=== PATIENT | female | born 1955 | race Caucasian/White ===

== ENCOUNTER → 2018-01-20 16:01 | Outpatient (CLI) | payer BC, SELFPAY ==
[2018-01-20 17:51] LABS: CRP 3.46 mg/L (0.0-3.0)
[2018-01-22 15:00] LABS: Endomysial Antibody IgA Negative (Negative); Immunoglobulin A 172 mg/dL (87-352); t-Transglutaminase IgA <2 U/mL (0-3)
== END ==
PROVIDERS: Family Provider Family Medicine; PCP Family Medicine; Visit Provider Internal Medicine Gastroenterology
DX: R19.7 Diarrhea, unspecified (principal)
CPT/HCPCS: 36415; 82784; 83516; 86140; 86255

== ENCOUNTER → 2018-01-27 16:30 | Outpatient (CLI) | payer BC, SELFPAY ==
--- NOTE | 2018-01-27 13:10 | COLBX_PTH ---
PATIENT: ARIEL VEE LOC: [facility] U#:[id number] AGE/SX: 69/F ROOM: RE01/27/[address]: Dr. Kendall Smith MD : [id number] BED: DIS: SPEC #: [id number] RECD: 01/27/18 15:29 STATUS: HILARIO DIRK #: [id number] KENYA: 01/27/18 13:[address]: Kendall Smith DEPT: SURGICAL PATHOLOGY RECD BY: Brayan Quinn ENTERED: 01/28/18 10:48 SP TYPE: COLON BX OTHR DR: Dr. Clifton Barry MD [facility] Tissues: A - Ileum, NOS B - COLON BIOPSY Procedures: Surgery Specimen Level IV HEADER OPERATION: Colonoscopy with biopsies PRE-OP DIAGNOSIS: Diarrhea TISSUE SUBMITTED: A. Biopsies terminal ileum, rule out Crohn?s, B. Biopsies right and left colon, rule out microscopic colitis MICROSCOPIC DIAGNOSIS A. Terminal ileum, biopsy: Fragments of small intestinal mucosa, no pathologic diagnosis. B: Right and left colon, biopsy: Fragments of colonic mucosa, no pathologic diagnosis. SJ:mike 01/29/18 TC:4 MICROSCOPIC DESCRIPTION Slides are reviewed. GROSS DESCRIPTION A. Received in fixative is one container labeled with the patient's name and designated terminal ileum biopsies. The specimen consists of multiple fragments of tissue measuring in aggregate 1.6 x 0.5 x 0.2. The specimen is totally submitted in one cassette. B. Received in fixative is one container labeled with the patient's name and designated right and left colon biopsy. The specimen consists of multiple fragments of tissue measuring in aggregate 1.8 x 0.5 x 0.2. The specimen is totally submitted in one cassette. RY:mike 01/27/18 TC: 4 CPT:67717x3
== END ==
PROVIDERS: Family Provider Family Medicine; PCP Family Medicine; Visit Provider Internal Medicine Gastroenterology
DX: R19.7 Diarrhea, unspecified (principal)
CPT/HCPCS: 88305

== ENCOUNTER → 2020-07-19 13:03 | Outpatient (CLI) | payer OTHER, SELFPAY ==
--- NOTE | 2020-07-19 13:05 | CT_ITS ---
STUDY: LOW DOSE CT LUNG CANCER SCREENING REASON FOR EXAM: Female, 64 years old. LUNG CANCER SCREENING. 1.5 PPD X 30 YEARS . QUIT IN 1999. HISTORY OF ANAL CA RADIATION DOSAGE (If Supplied By Facility): CTDIvol = ( 3.40 ) mGy, DLP = ( 105.94 ) mGycm TECHNIQUE: No contrast was administered. Low dose technique was utilized (average mAS-38 and kVp 120). 1.25 mm axial source images with a slice interval of 1.25-mm were reconstructed in lung windows. 2.5 mm axial source images with a slice interval of 2.5-mm were reconstructed in lung windows. 5.0 mm axial source images with a slice interval of 5.0-mm were reconstructed in soft tissue windows. Nodule measured using lung windows on PACS and/or independent workstation with automated measurement of minimum and maximum diameter. Nodule measurement reported as average diameter rounded to the nearest whole number. Growth is defined as an increase ins size of greater than 1.5 mm. COMPARISON: None. NODULES: No suspicious nodules are seen. Emphysema: No significant emphysematous changes. Endobronchial lesion: Aorta: Atherosclerotic calcification of the aortic arch. Coronary arteries: Coronary artery calcification. Mediastinal nodes: Benign appearing mediastinal lymph nodes. Other chest and abdominal findings: Degenerative changes of the thoracic spine. CT/Low Dose CT Lung Screening IMPRESSION: Lung-RADS category 2 - Continue annual screening with LDCT in 12 months. IMPORTANT NOTES FOR USE: ACR Lung-RADS Version 1.0 Assessment Categories Release Date: November 30, 2013 Category: Coded 0-4 bases on nodule(s) with highest degree of suspicion. Negative screen is defined as categories 1 and 2; a positive screen is defined as categories 3 and 4. Category 3 and 4A nodules that are unchanged on interval CT should be coded as category 2, and individuals returned to screening in 12 months. Category 4X: Category 3 or 4 nodules with additional imaging findings that increase the suspicion of lung cancer, such as spiculation, GGN that doubles in size in 1 year, enlarged lymph notes, etc. Category Modifiers: S (significant finding unrelated to lung cancer) and C (prior history of treated lung cancer) may be added to the 0-4 Lung-RADS Electronically Signed: Abdoulaye Zacarias, at 15:33 EST , Service support ,
== END ==
PROVIDERS: PCP Family Medicine; Referring Provider Radiology Radiation Oncology; Visit Provider Radiology Radiation Oncology
DX: Z12.2 Encounter for screening for malignant neoplasm of respiratory organs (principal); Z87.891 Personal history of nicotine dependence
CPT/HCPCS: G0297

== ENCOUNTER 2022-04-15 20:35 | Emergency (ER) | payer MEDICARE, OTHER, SELFPAY ==
[2022-04-15 20:36] VITALS: BP 181/78; PULSE 79; RESP 18; TEMP 35.7; O2SAT 97; BMI 37.8
[2022-04-15 21:21] LABS: Bacteria 0 SEEN /hpf (None Seen); Mucous, Urine 0 SEEN /hpf (<or=2+)
[2022-04-15 21:25] LABS: Color, Urine Yellow (Yellow); Glucose, Dipstick Normal (Normal); Ketone-Dipstick 5 mg/dl (Negative); Leukocyte Esterase-Dipstick 500 /ul (Negative); Nitrite-Dipstick Negative (Negative); Occult Blood-Urine 250 /ul (Negative); Protein-Dipstick 30 mg/dl (Negative); Specific Gravity, Urine 1.025 (1.002-1.030); Urine Urobilinogen 1 mg/dl (Normal)
[2022-04-15 21:27] LABS: Urine Bilirubin Dipstick 1 mg/dL (Negative)
[2022-04-15 21:32] LABS: Red Blood Cells-Urine > 100 SEEN /hpf (0-5); White Blood Cells 25-50 SEEN /hpf (0-5)
[2022-04-15 21:33] LABS: Amorphous Sediment 1+ URATE; Squamous Epithelial Cells - UA 0-5 SEEN /hpf (5-10)
[2022-04-15 21:34] LABS: Urine Clarity Sl Cldy (Clear)
--- NOTE | 2022-04-15 21:45 | CT_ITS ---
STUDY: CT ABDOMEN AND PELVIS WITHOUT CONTRAST REASON FOR EXAM: Female, 66 years old. Kidney Stone RADIATION DOSAGE (If Supplied By Facility): CTDIvol = ( 28.52 ) mGy, DLP = ( 1450.09 ) mGycm TECHNIQUE: Transaxial images were obtained from the dome of the diaphragm to the symphysis pubis without oral contrast, and without intravenous contrast. Sagittal and coronal images were reconstructed. Individualized dose optimization techniques were used for this CT. COMPARISON: None. FINDINGS: LOWER CHEST: Mitral annular calcifications. LIVER: The liver is diffusely hypoattenuating, consistent with hepatic steatosis. GALLBLADDER/BILE DUCTS: Normal. PANCREAS: Normal. SPLEEN: Normal. ADRENAL GLANDS: Normal. KIDNEYS/URETERS/BLADDER: Mild left hydroureteronephrosis due to a 3 mm calculus at the left vesicoureteral junction. Additional nonobstructive left nephrolithiasis.. Cystic changes in the interpolar region of the left kidney measuring 19 mm, incompletely characterized. RETROPERITONEUM/AORTA: Moderate atherosclerotic calcifications. BOWEL/MESENTERY: Normal. APPENDIX: Identified and normal. PERITONEUM: Normal. REPRODUCTIVE ORGANS: Normal. BONES/SOFT TISSUES: Status post right hip arthroplasty with streak artifact, limiting evaluation. No acute osseous abnormality. OTHER: None. CT/Abdomen/Pelvis without Cont IMPRESSION: 1. Mild left hydroureteronephrosis due to a 3 mm calculus in the left vesicoureteral junction. 2. Additional nonobstructive left nephrolithiasis. 3. Incompletely evaluated 19 mm cystic structure in the left kidney. Consider further characterization with renal ultrasound. 4. Hepatic steatosis. Electronically Signed: Arie Montalvo MD at 22:35 EDT ,
--- NOTE | 2022-04-15 21:46 | EDS_ITS ---
HPI History of Present Illness Chief Complaint: Flank Pain Informant: patient Narrative Narrative: Increasing left flank pain rating to her groin since 5 PM. Nausea vomiting x3. No urinary symptoms. No history of kidney stones. Only medication is Lipitor. No allergies. No medicines taken at home. No history of kidney injuries. Pain currently is 6 out of 10. Prior similar symptoms: No PFSH PFSH Medical History Cancer Former smoker GERD (gastroesophageal reflux disease) Osteoporosis Primary malignant neoplasm of perianal skin Home Medications atorvastatin 40 mg tablet 40 mg PO QHS 04/15/22 [History Last Taken Unknown] cephalexin 500 mg capsule 500 mg PO Q12 #14 caps 04/15/22 [Rx Last Taken Unknown] multivit with ofaidvbk-tipl-OD-lutein 8 mg iron-400 mcg-300 mcg tablet (Centrum Silver Women) 1 tab PO DAILY 04/15/22 [History Last Taken Unknown] ondansetron 4 mg disintegrating tablet 4 mg PO Q6H PRN nausea and vomiting #20 tabs 04/15/22 [Rx Last Taken Unknown] oxycodone-acetaminophen 5 mg-325 mg tablet (Percocet) 1 tab PO Q6H PRN pain 3 days #12 tabs 04/15/22 [Rx Last Taken Unknown] Allergy/AdvReac Type Severity Reaction Status Date / Time No Known Allergies Allergy Verified 04/15/22 20:35 Social History Smoking Status: Former smoker ROS ROS ED Constitutional Constitutional ED: Denies chills, fever(s) or sweats Eyes Eyes: Denies change in vision ENT ENT ED: Denies dysphagia or sore throat Cardiovascular Cardiovascular: Denies chest pain, leg edema, palpitations or racing heartbeat Respiratory/Chest Respiratory/Chest: Denies cough, dyspnea or dyspnea on exertion Gastrointestinal Gastrointestinal: Denies abdominal pain, diarrhea, nausea or vomiting Genitourinary Genitourinary ED: Denies dysuria, hematuria or urinary frequency Musculoskeletal Musculoskeletal: Reports back pain; Denies extremity pain or neck pain Integumentary Denies rash or wounds Neurologic Neurologic: Denies headache(s), paresthesias or weakness EXAM Physical Exam Const Vital Signs: 04/15/22 20:36 04/15/22 23:36 04/15/22 23:36 Temperature 96.3 F L Temperature Source Temporal Pulse Rate 79 75 75 Respiratory Rate 18 16 16 Blood Pressure 181/78 H 154/70 H 154/70 H Blood Pressure Mean 112 98 Pulse Ox 97 97 97 Oxygen Delivery Method Room Air Room Air Positive well nourished and well developed General Appearance ED: well developed and NAD HEENT Reports moist mucous membranes normocephalic and atraumatic Eyes PERRL, EOMs intact bilaterally and conjunctivae normal General Eye ED: Yes normal appearance of both eyes Neck no lymphadenopathy and supple General: Negative for tenderness Chest Wall Chest: Negative for tenderness Resp normal respiratory effort and normal air movement Effort and Inspection: symmetric chest movement; Negative for respiratory distress Cardio regular rate, regular rhythm and no murmurs Peripheral Pulses: pulses 2+ throughout GI normal to inspection, nondistended, normoactive bowel sounds and non-tender Palpation: Negative for guarding or rebound tenderness present Back/Spine no CVA tenderness and no thoracic nor lumbar tenderness Extremity normal to inspection General Extremety ED: Negative for edema or tenderness General Extremity: Negative for edema Neuro oriented x3 and no sensory deficits noted Sensorium / Orientation: awake and alert Skin no rashes or lesions noted and no wounds MDM MDM MDM Narrative Medical decision making narrative: Presented renal colic since 5 PM no history of kidney stones urine from triage note signs of infection or blood however she denies urine symptoms. Treated with IV fluids Toradol Zofran. CT scan confirms 3 mm left UVJ stone with mild hydro-. White count 8.6 creatinine 1.2 there is no old for comparison. Her symptoms were controlled. With kidney stone signs of infection culture sent and she is given dose of Rocephin. I spoke with on-call urologist Dr. Shaffer with symptom control nontoxic can be discharged with outpatient follow-up. Patient sent home with urine strainer. Strict return precautions. Her prior to discharge pain returned requiring a dose of morphine which helped her symptoms. Will avoid NSAIDs with her renal sufficiency at 1.2 creatinine. Prescription for Zofran Percocet Keflex written for meds to beds. Follow-up given with strict return precautions. All questions were answered. Lab Data Attestation: I reviewed the patient's lab results. Labs: Laboratory Results - last 24 hr 09/11/22 09/11/22 09/11/22 21:15 21:15 21:15 WBC 8.6 RBC 4.38 Hgb 13.2 Hct 40.0 MCV 91.3 MCH 30.1 MCHC 33.0 RDW Std Deviation 41.8 RDW Coeff of Miguel 12.7 Plt Count 250 MPV 10.9 Immature Gran % (Auto) 0.600 Neut % (Auto) 53.9 Lymph % (Auto) 36.7 [place] % (Auto) 7.5 Eos % (Auto) 1.0 Baso % (Auto) 0.3 Absolute Neuts (auto) 4.6 Absolute Lymphs (auto) 3.17 Nucleated RBC % 0 Sodium 144 Potassium 3.8 Chloride 110 H Carbon Dioxide 27.0 Anion Gap 7 BUN 16 Creatinine 1.20 H Estim Creat Clear Calc 38.75 Est GFR (MDRD) Af Amer 57 L Est GFR (MDRD) Non-Af 47 L BUN/Creatinine Ratio 13.3 Glucose 102 Calcium 9.4 Urine Color Yellow Urine Clarity Sl Cldy Urine pH 5.0 Ur Specific [place] 1.025 Urine Protein 30 H Urine Glucose (UA) Normal Urine Ketones 5 H Urine Occult Blood 250 H Urine Nitrite Negative Urine Bilirubin 1 H Urine Urobilinogen 1 H Ur Leukocyte Esterase 500 H Urine RBC > 100 SEEN Urine WBC 25-50 SEEN Ur Squamous Epith Cells 0-5 SEEN Amorphous Sediment 1+ URATE Urine Bacteria 0 SEEN Urine Mucus 0 SEEN Radiography Diagnostic Testing: Clinical Impression(s) from Imaging Studies Abdomen/Pelvis CT 04/15/22 21:45 IMPRESSION: 1. Mild left hydroureteronephrosis due to a 3 mm calculus in the left vesicoureteral junction. 2. Additional nonobstructive left nephrolithiasis. 3. Incompletely evaluated 19 mm cystic structure in the left kidney. Consider further characterization with renal ultrasound. 4. Hepatic steatosis. Electronically Signed: Arie Montalvo MD at 22:35 EDT , Discharge Plan Triage Chief Complaint: Flank Pain ED Provider: Renato Reed Dx/Rx/DC Orders Clinical Impression: Kidney stone on left side, Hematuria, UTI (urinary tract infection), Renal insufficiency Instructions: ED Hematuria, ED Kidney Stone w/ Colic Prescriptions: New oxycodone-acetaminophen [Percocet] 5-325 mg tablet 1 tab PO Q6H PRN (Reason: pain) 3 Days Qty: 12 0RF cephalexin [cephalexin] 500 mg capsule 500 mg PO Q12 Qty: 14 0RF ondansetron 4 mg tablet,disintegrating 4 mg PO Q6H PRN (Reason: nausea and vomiting) Qty: 20 0RF No Action atorvastatin 40 mg tablet 40 mg PO QHS Centrum Silver Women 8 mg iron-400 mcg-300 mcg Tablet 1 tab PO DAILY Primary Care Provider: Clifton Barry Referrals: Clifton Barry MD [Primary Care Provider] - Alonso Shaffer MD [Med Staff - Active Staff] - 3-5 Days Activity Restrictions/Additional Instructions: 3 mm left UVJ stone. Urine with infection. Creatinine 1.2. Take antibiotic as prescribed. Take medicines as needed. Strain your urine. Return if any worsening symptoms. Disposition Disposition: Home, Self Care Discharge Date/Time: 04/16/22 00:12
[2022-04-15] MEDS: Ketorolac 15 MG/ML Vial IV (21:50)
[2022-04-15] MEDS: Ondansetron 4 MG/2 ML Vial IV (21:50)
[2022-04-15] MEDS: 0.9% Normal Saline 1,000 ML 250 ML IV (21:51)
[2022-04-15 22:08] LABS: Anion Gap 7 (5-15); BUN 16 mg/dL (7-18); BUN/Creat Ratio 13.3 RATIO (10-20); Calcium,Total 9.4 mg/dL (8.5-10.1); Chloride 110 mmol/L (98-107); EST Glomerular Filtration Rate 47 mL/min (>60); Est Glom Filt Rate - Afr Amer 57 mL/min (>60); Estimated Creatinine Clearance 38.75 ml/min; Glucose 102 mg/dL (74-106); Potassium 3.8 mmol/L (3.5-5.1); Sodium Level 144 mmol/L (136-145)
[2022-04-15 22:11] LABS: Absolute Lymphocyte Count 3.17 X10^3/uL (0.83-4.51); Absolute Neutrophil Count 4.6 X10^3/uL (2.0-7.7); Basophil# 0.03 X10^3/uL; Basophil% 0.3 % (0-1); Eosinophil# 0.09 X10^3/uL; Hemoglobin 13.2 g/dL (12.0-15.0); Lymphocyte # 3.17 X10^3/ul (0.83-4.51); Lymphocyte % 36.7 % (19-41); Mean Corpuscular Hgb 30.1 pg (27.0-32.0); Mean Corpuscular Volume 91.3 fL (81-99); Mean Platelet Vol. 10.9 fl (6.2-12.0); Monocyte# 0.65 X10^3/uL; Monocyte% 7.5 % (0-10); NRBC Flagged by Analyzer 0 % (0-5); Neutrophil # 4.64 X10^3/uL (2.7-7.7); Neutrophil % 53.9 % (47-70); Platelet Count 250 K/mm3 (150-450); RBC Distribution Width CV 12.7 % (11.6-14.6); RBC Distribution Width SD 41.8 fl (35.1-43.9); Red Blood Count 4.38 M/mm3 (4.2-5.4); White Blood Count 8.6 K/mm3 (4.4-11.0)
[2022-04-15] MEDS: Ceftriaxone 1 GM/50 ML BAG IV (22:56)
[2022-04-15] MEDS: Morphine 4 MG/ML Syringe IV (23:26)
[2022-04-15 23:36] VITALS: BP 154/70; PULSE 75; RESP 16; O2SAT 97
== END 2022-04-16 00:12 | disposition home or self-care (01) ==
PROVIDERS: Emergency Provider Emergency Medicine; PCP Family Medicine; Visit Provider Emergency Medicine
DX: N13.2 Hydronephrosis with renal and ureteral calculous obstruction (principal); Z87.891 Personal history of nicotine dependence; K21.9 Gastro-esophageal reflux disease without esophagitis; M81.0 Age-related osteoporosis without current pathological fracture; Z79.899 Other long term (current) drug therapy; N39.0 Urinary tract infection, site not specified
CPT/HCPCS: 74176; 80048; 81001; 85025; 87086; 87088; 96361; 96365; 96375; 99284; A4216; J2405

== ENCOUNTER 2023-07-20 08:54 | Inpatient (IN) | payer MEDICARE, OTHER, SELFPAY ==
[2023-07-20] VITALS (8 sets, daily range): BP systolic 105–166; BP diastolic 50–77; PULSE 90–111; RESP 16–18; TEMP 36.9–39.6; O2SAT 86–99; BMI 40.4; BMI 39.6
--- NOTE | 2023-07-20 09:21 | EDS_ITS ---
HPI HPI - GI History of Present Illness Chief Complaint: Abd Pain Informant: patient and spouse/S.O. Narrative Narrative: Patient had a routine screening colonoscopy at outpatient endoscopy center by Dr. Smith 2 days ago, she woke up having bilateral shoulder discomfort that has not gone away, has worsened, and now she has had nausea and vomiting. She has not had a bowel movement since, she has passed very little flatus. She denies any abdominal pain but she is uncomfortably distended. PFSH PFSH Medical History Cancer Former smoker GERD (gastroesophageal reflux disease) Osteoporosis Primary malignant neoplasm of perianal skin Home Medications atorvastatin 40 mg tablet 40 mg PO QHS 04/15/22 [History Last Taken Unknown] cephalexin 500 mg capsule 500 mg PO Q12 #14 caps 04/15/22 [Rx Last Taken Unknown] khnounfb-ftbr-ilha 8 mg-folic 400 mcg-K 50 mcg-lutein 300 mcg tablet (Centrum Silver Women) 1 tab PO DAILY 04/15/22 [History Last Taken Unknown] ondansetron 4 mg disintegrating tablet 4 mg PO Q6H PRN nausea and vomiting #20 tabs 04/15/22 [Rx Last Taken Unknown] oxycodone-acetaminophen 5 mg-325 mg tablet (Percocet) 1 tab PO Q6H PRN pain 3 days #12 tabs 04/15/22 [Rx Last Taken Unknown] Allergy/AdvReac Type Severity Reaction Status Date / Time No Known Allergies Allergy Verified 07/20/23 08:57 Social History Smoking Status: Former smoker ROS ROS ED Constitutional Constitutional ED: Denies chills or fever(s) Eyes Eyes: Denies change in vision or diplopia ENT ENT ED: Denies rhinorrhea or sore throat Cardiovascular Cardiovascular: Denies chest pain or palpitations Respiratory/Chest Respiratory/Chest: Denies cough or dyspnea Gastrointestinal Gastrointestinal: Reports nausea and vomiting; Denies abdominal pain or diarrhea Genitourinary Genitourinary ED: Denies dysuria or hematuria Musculoskeletal Musculoskeletal: Denies back pain or neck pain Integumentary Denies abscess or rash Neurologic Neurologic: Denies headache(s), paresthesias or weakness Psychiatric Psychiatric: Denies anxiety or suicidal thoughts EXAM Physical Exam Const Vital Signs: 07/20/23 08:56 Temperature 98.5 F Temperature Source Temporal Pulse Rate 111 H Respiratory Rate 18 Blood Pressure 166/67 H Blood Pressure Mean 100 Pulse Ox 99 Oxygen Delivery Method Room Air Positive well nourished and well developed General Appearance ED: well developed and NAD HEENT Reports moist mucous membranes normocephalic and atraumatic Eyes PERRL and EOMs intact bilaterally Neck full ROM and supple Resp normal respiratory effort and clear to auscultation bilaterally Cardio regular rate, regular rhythm and no murmurs Rate: tachycardic GI non-tender Inspection: other Other Details: Distended. Absent bowel sounds. Auscultation: hypoactive bowel sounds Palpation: soft Back/Spine no CVA tenderness General Back: other FROM Extremity normal to inspection General Extremety ED: Negative for edema, pulses abnormal or tenderness General Extremity: Negative for edema or pulses abnormal Neuro oriented x3, CN's II-XII intact bilaterally and no sensory deficits noted Sensorium / Orientation: awake and alert Motor Exam: strength 5/5 throughout Skin no rashes or lesions noted and no wounds MDM MDM MDM Narrative Medical decision making narrative: Differential here includes perforation, other causes of colonic pain status post colonoscopy including distention and spasm, and other causes of intra-abdominal pain. The pain in the both shoulders suggest that this may be Kehr sign, or associated diaphragmatic irritation, but she does not have any tenderness in the upper quadrants on exam. Given all of this, I thought a CT was warranted in order to evaluate further and rule out a perforation. I reviewed the images and the report which I agree with, it is negative for free air and/or perforation, ileus, bowel obstruction, but shows suspicion for possible gallbladder issues and recommended an ultrasound which was then obtained in addition to labs, the labs are unremarkable except for a very slight elevation of ALT only, and the ultrasound is suspicious for cholecystitis. She has stones, distention, and a positive sonographic Bernabe's, requesting pain medication on return from ultrasound, which was given in addition to the morphine that we gave her initially for the pain in her shoulders. She does not have significant leukocytosis, although there is a predilection of neutrophils on her 9.7 white blood count which is high normal range. Discussed this case with surgery on- call Dr. Patel. Will admit to MedSurg observation for further evaluation, agrees with giving Zosyn empirically for now. Adding on a lipase to her blood work. Lab Data Attestation: I reviewed the patient's lab results. Labs: Laboratory Results - last 24 hr 07/20/23 09:40 WBC 9.7 RBC 4.40 Hgb 13.3 Hct 39.5 MCV 89.8 MCH 30.2 MCHC 33.7 RDW Std Deviation 40.7 RDW Coeff of Miguel 12.3 Plt Count 225 MPV 10.7 Immature Gran % (Auto) 0.400 Neut % (Auto) 87.9 H Lymph % (Auto) 6.8 L [place] % (Auto) 4.5 Eos % (Auto) 0.1 Baso % (Auto) 0.3 Absolute Neuts (auto) 8.6 H Absolute Lymphs (auto) 0.66 L Nucleated RBC % 0 Sodium 136 Potassium 4.6 Chloride 103 Carbon Dioxide 27.0 Anion Gap 6 BUN 13 Creatinine 1.25 H Estim Creat Clear Calc 36.68 Est GFR (MDRD) Af Amer 55 L Est GFR (MDRD) Non-Af 45 L BUN/Creatinine Ratio 10.4 Glucose 194 H Calcium 9.2 Total Bilirubin 0.70 AST 35 ALT 57 H Alkaline Phosphatase 97 Total Protein 7.3 Albumin 3.2 Globulin 4.1 Albumin/Globulin Ratio 0.8 L Radiography Diagnostic Testing: Clinical Impression(s) from Imaging Studies Abdomen/Pelvis CT 07/20/23 09:21 IMPRESSION: Cholelithiasis associated with a distended gallbladder, recommend right upper quadrant ultrasound for further characterization. Fatty infiltration of the liver associated with hepatomegaly. Atherosclerosis. Nonobstructing 5.3 mm left renal calculus. Electronically Signed: Debo Stein MD at 10:49 EST , Gallbladder Ultrasound 07/20/23 11:28 IMPRESSION: Fatty infiltration of the liver associated with hepatomegaly. Cholelithiasis associated with a distended gallbladder, a reported positive sonographic Bernabe''s sign, mild gallbladder wall thickening and no pericholecystic fluid, cannot exclude chronic cholecystitis. Electronically Signed: Debo Stein MD at 12:46 EST , Management Discussion w/another healthcare provider: [employer] (GI Dr. Smith; Surgery Dr. Patel) Discharge Plan Triage Chief Complaint: Abd Pain ED Provider: Jai Powell Dx/Rx/DC Orders Clinical Impression: Acute calculous cholecystitis Prescriptions: No Action atorvastatin 40 mg tablet 40 mg PO QHS Centrum Silver Women 8 mg iron-400 mcg-300 mcg Tablet 1 tab PO DAILY oxycodone-acetaminophen [Percocet] 5-325 mg tablet 1 tab PO Q6H PRN (Reason: pain) 3 Days Qty: 12 0RF cephalexin [cephalexin] 500 mg capsule 500 mg PO Q12 Qty: 14 0RF ondansetron 4 mg tablet,disintegrating 4 mg PO Q6H PRN (Reason: nausea and vomiting) Qty: 20 0RF Primary Care Provider: Moni Barrera NP Referrals: Clifton Barry MD [Non-Staff] - Disposition Disposition: Acute Care [facility]
--- NOTE | 2023-07-20 09:21 | CT_ITS ---
INDICATION: vomiting, distension s/p colonoscopy EXAMINATION: CT ABDOMEN AND PELVIS WITHOUT CONTRAST - CT Abdomen And Pelvis W/O Contrast Injection TECHNIQUE: Helically acquired images were obtained of the abdomen and pelvis without oral or IV contrast. A radiation dose optimization technique was used for this scan. IV Contrast dosage and agent: None. Oral contrast: None. RADIATION DOSAGE (If Supplied By Facility): CTDIvol = ( 22.29 ) mGy, DLP = ( 1058.11 ) mGycm COMPARISON: April 15, 2022 FINDINGS: LOWER CHEST: Lung bases are clear. No cardiomegaly or pericardial effusion. The lack of intravenous contrast limits evaluation of solid visceral organs. LIVER: The liver is diffusely low in attenuation consistent with fatty infiltration. There is hepatomegaly. GALLBLADDER AND BILIARY TREE: There are gallstones within a distended gallbladder. No intra- or extrahepatic biliary ductal dilation. PANCREAS: No focal cystic or solid mass. SPLEEN: Normal size without focal cystic or solid mass. ADRENAL GLANDS: No nodules. KIDNEYS AND URETERS: Normal renal size and position. There is stable bilobed appearing low-attenuation focus arising from the left kidney suggestive of a cyst. There is a 5.3 mm nonobstructing left renal calculus. No hydronephrosis. PERITONEUM: No ascites or free air. No other fluid collection. BOWEL: No evidence of acute appendicitis. No stomach or bowel distension. No focal inflammatory change. LYMPH NODES: No enlarged mesenteric or retroperitoneal lymph nodes. VESSELS: Aorta is non-dilated. There are peripheral calcifications of the abdominal aorta. URINARY BLADDER: Unremarkable. REPRODUCTIVE ORGANS: No pelvic masses. ABDOMINAL WALL: No discrete abdominal or pelvic wall hernia. BONES: There are degenerative changes of the lumbar spine. There are postsurgical changes of the posterior elements of the mid and lower lumbar spine. There is a right hip arthroplasty in place. There are degenerative changes of the left hip. CT/Abdomen/Pelvis without Cont IMPRESSION: Cholelithiasis associated with a distended gallbladder, recommend right upper quadrant ultrasound for further characterization. Fatty infiltration of the liver associated with hepatomegaly. Atherosclerosis. Nonobstructing 5.3 mm left renal calculus. Electronically Signed: Debo Stein MD at 10:49 EST ,
[2023-07-20] MEDS: Morphine 4 MG/ML Syringe IV ×2 (09:47→12:52)
[2023-07-20] MEDS: Ondansetron 4 MG/2 ML Vial IV ×2 (09:47→19:04)
[2023-07-20] MEDS: 0.9% Normal Saline (1000mL) 1,000 ML 125 ML IV ×2 (09:47→16:11)
[2023-07-20 09:48] LABS: Absolute Lymphocyte Count 0.66 X10^3/uL (0.83-4.51); Absolute Neutrophil Count 8.6 X10^3/uL (2.0-7.7); Basophil# 0.03 X10^3/uL; Basophil% 0.3 % (0-1); Eosinophil# 0.01 X10^3/uL; Eosinophils% 0.1 % (0-5); Hematocrit 39.5 % (37-47); Hemoglobin 13.3 g/dL (12.0-15.0); Lymphocyte # 0.66 X10^3/ul (0.83-4.51); Lymphocyte % 6.8 % (19-41); Mean Corp Hgb Conc 33.7 g/dL (32-36); Mean Corpuscular Hgb 30.2 pg (27.0-32.0); Mean Corpuscular Volume 89.8 fL (81-99); Mean Platelet Vol. 10.7 fl (6.2-12.0); Monocyte# 0.44 X10^3/uL; Monocyte% 4.5 % (0-10); NRBC Flagged by Analyzer 0 % (0-5); Neutrophil # 8.56 X10^3/uL (2.7-7.7); Neutrophil % 87.9 % (47-70); Platelet Count 225 K/mm3 (150-450); RBC Distribution Width CV 12.3 % (11.6-14.6); RBC Distribution Width SD 40.7 fl (35.1-43.9); White Blood Count 9.7 K/mm3 (4.4-11.0)
[2023-07-20 10:05] LABS: ALB/GLOB Ratio 0.8 RATIO (0.9-2.4); AST(SGOT) 35 U/L (15-37); Alanine Aminotransfer ALT/SGPT 57 U/L (13-56); Albumin, Serum 3.2 g/dL (3.2-5.0); Alkaline Phosphatase 97 U/L (45-117); Anion Gap 6 (5-15); BUN 13 mg/dL (7-18); BUN/Creat Ratio 10.4 RATIO (10-20); Calcium,Total 9.2 mg/dL (8.5-10.1); Chloride 103 mmol/L (98-107); Creatinine, Serum 1.25 mg/dL (0.55-1.02); EST Glomerular Filtration Rate 45 mL/min (>60); Est Glom Filt Rate - Afr Amer 55 mL/min (>60); Estimated Creatinine Clearance 36.68 ml/min; Globulin 4.1 g/dL (2.2-4.2); Glucose 194 mg/dL (74-106); Potassium 4.6 mmol/L (3.5-5.1); Protein, Total 7.3 g/dL (6.4-8.2); Sodium Level 136 mmol/L (136-145)
--- NOTE | 2023-07-20 11:28 | US_ITS ---
Examination: Right upper quadrant ultrasound. INDICATION: Abnormal gallbladder on CT. COMPARISON: CT dated July 20, 2023 TECHNIQUE: A dedicated right upper quadrant ultrasound was obtained including Doppler imaging. FINDINGS: The liver is diffusely hyperechoic consistent with fatty infiltration. There is hepatomegaly. There are multiple gallstones within the gallbladder which is distended. There is mild gallbladder wall thickening. There is no pericholecystic fluid. There are echogenic nonmobile nodular foci within the gallbladder fundus which may reflect polyps. There is a reported positive sonographic Bernabe''s sign. The common bile duct measures 6.2 mm. The visualized pancreas is within normal limits. The right kidney measures 11.2 cm in length and is within normal limits. US/Gallbladder IMPRESSION: Fatty infiltration of the liver associated with hepatomegaly. Cholelithiasis associated with a distended gallbladder, a reported positive sonographic Bernabe''s sign, mild gallbladder wall thickening and no pericholecystic fluid, cannot exclude chronic cholecystitis. Electronically Signed: Debo Stein MD at 12:46 EST ,
--- NOTE | 2023-07-20 13:08 | NURSING ---
MED SURG OBS FELIBERTO ACUTE CHOLECYSTITIS
[2023-07-20 13:18] LABS: Lipase 21 U/L (13-75)
[2023-07-20] MEDS: Piperacil/Tazobactam 3.375 GM in 0.9% Normal Saline (50mL MB+) 50 ML IV ×2 (13:25→21:33)
--- NOTE | 2023-07-20 13:44 | NURSING ---
DR DAO IN ROOM
--- NOTE | 2023-07-20 13:57 | HP.PCM.SX_ITS ---
HPI - General General Date of Admission: 07/20/23 HPI Narrative ARIEL VEE, is a 67 F who presents with 2 days of abdominal pain. The patient had a colonoscopy on and came home and when she ate she started having severe pain. She also started having nausea and vomiting. She also says she has been experiencing chills. She said the colonoscopy was for screening and was normal. She is complaining of pain in her left shoulder left upper quadrant lower abdomen and both groins. She does not complain of right upper quadrant pain when she first came in but she was after the ultrasound was done. [facility] Medical History Cancer Former smoker GERD (gastroesophageal reflux disease) Osteoporosis Primary malignant neoplasm of perianal skin Home Medications atorvastatin 40 mg tablet 40 mg PO QHS 04/15/22 [History Last Taken 07/19/23] Allergy/AdvReac Type Severity Reaction Status Date / Time No Known Allergies Allergy Verified 07/20/23 08:57 Social History Smoking Status: Former smoker ROS Constitutional Constitutional: Reports anorexia and chills; Denies fatigue or fever(s) Eyes Eyes: Denies blurry vision ENT HEENT: Denies abnormal hearing Cardiovascular Cardiovascular: Denies chest pain Respiratory/Chest Respiratory/Chest: Denies cough or dyspnea Gastrointestinal Gastrointestinal: Reports abdominal pain, nausea and vomiting; Denies constipation or diarrhea Genitourinary Genitourinary: Denies change in urinary stream Musculoskeletal Musculoskeletal: Denies abnormal gait Integumentary Integumentary: Denies new lesions Neurologic Neurologic: Denies abnormal gait Psychiatric Psychiatric: Denies depression Endocrine Endocrinology: Denies flushing Vital Signs Vital Signs Vital Signs: 07/20/23 08:56 07/20/23 13:27 07/20/23 13:27 Temperature 98.5 F 103.1 F H 103.1 F H Temperature Source Temporal Oral Oral Pulse Rate 111 H 105 H 103 H Respiratory Rate 18 16 16 Blood Pressure 166/67 H 131/61 H 131/61 H Blood Pressure Mean 100 84 84 Pulse Ox 99 90 91 Oxygen Delivery Method Room Air Room Air Room Air 07/20/23 13:30 Temperature 103.1 F H Temperature Source Pulse Rate 91 Respiratory Rate 16 Blood Pressure 131/61 H Blood Pressure Mean 84 Pulse Ox 91 Oxygen Delivery Method Weight Weight: 235 lb 12.8 oz Body Mass Index (BMI) 40.4 Physical Exam Const oriented x3 and no apparent distress Resp normal respiratory effort Cardio regular rate and regular rhythm GI soft to palpation Palpation: tender other (Generalized) Results Lab / Micro Data 07/20/23 09:40 07/20/23 09:40 Labs: Laboratory Results - last 24 hr 07/20/23 09:40: WBC 9.7, RBC 4.40, Hgb 13.3, Hct 39.5, MCV 89.8, MCH 30.2, MCHC 33.7, RDW Std Deviation 40.7, RDW Coeff of Miguel 12.3, Plt Count 225, MPV 10.7, Immature Gran % (Auto) 0.400, Neut % (Auto) 87.9 H, Lymph % (Auto) 6.8 L, [place] % (Auto) 4.5, Eos % (Auto) 0.1, Baso % (Auto) 0.3, Absolute Neuts (auto) 8.6 H, Absolute Lymphs (auto) 0.66 L, Nucleated RBC % 0, Sodium 136, Potassium 4.6, Chloride 103, Carbon Dioxide 27.0, Anion Gap 6, BUN 13, Creatinine 1.25 H, Estim Creat Clear Calc 36.68, Est GFR (MDRD) Af Amer 55 L, Est GFR (MDRD) Non-Af 45 L, BUN/Creatinine Ratio 10.4, Glucose 194 H, Calcium 9.2, Total Bilirubin 0.70, AST 35, ALT 57 H, Alkaline Phosphatase 97, Total Protein 7.3, Albumin 3.2, Globulin 4.1, Albumin/Globulin Ratio 0.8 L, Lipase 21 Imagaing Radiology Impression Abdomen/Pelvis CT 07/20/23 09:21 IMPRESSION: Cholelithiasis associated with a distended gallbladder, recommend right upper quadrant ultrasound for further characterization. Fatty infiltration of the liver associated with hepatomegaly. Atherosclerosis. Nonobstructing 5.3 mm left renal calculus. Electronically Signed: Debo Stein MD at 10:49 EST , Gallbladder Ultrasound 07/20/23 11:28 IMPRESSION: Fatty infiltration of the liver associated with hepatomegaly. Cholelithiasis associated with a distended gallbladder, a reported positive sonographic Bernabe''s sign, mild gallbladder wall thickening and no pericholecystic fluid, cannot exclude chronic cholecystitis. Electronically Signed: Debo Stein MD at 12:46 EST , Assessment & Plan Assessment/Plan (1) Acute calculous cholecystitis: PLAN: The patient presented with 2 days of pain that started the afternoon of her colonoscopy. She had a CT scan done which was normal except for cholelithiasis. She had an ultrasound done which showed mild wall thickening but the only measurement I could see in the ultrasound was 0.29 cm which would be normal. Patient has normal white count but she does have a left shift. The patient's symptoms are also vague. She is having pain throughout her abdomen not just localized to the right upper quadrant including pain in the left shoulder and groins. During examination the patient started having a fever of 103.1. I was planning on admitting her and taking for surgery tomorrow morning but now that she is having such a high fever I am checking a COVID and a flu test to see if that may be the etiology. As far as I can tell if the tests are negative my options would be to take her for cholecystectomy versus waiting for until HIDA can be done. Awaiting results of the viral swabs before making a decision. Tariq Patel MD Pager: [facility] [address] [place] [address], [address] [place] [address] Office:
[2023-07-20] MEDS: Acetaminophen 500 MG Tablet 1000 MG PO (14:02)
--- NOTE | 2023-07-20 15:44 | NM_ITS ---
INDICATION: cholelithiasis, abdominal pain EXAMINATION: NUCLEAR MEDICINE HEPATOBILIARY SCAN - NM Hepatobiliary Imaging Quantitive TECHNIQUE: 5. mCi technetium 99m choletec was intravenously administered and static images were obtained. COMPARISON: Ultrasound earlier today FINDINGS: There is homogeneous uptake and excretion of the radiopharmaceutical by the liver. There is no abnormal hyperemia along the gallbladder fossa. Biliary activity is noted at 10 minutes. Bowel activity is noted at 30 minutes. Gallbladder activity is noted at 10 minutes. NM/Hepatobilliary Imaging IMPRESSION: Negative hepatobiliary scan. Electronically Signed: Byron Peterson MD at 21:25 EST ,
[2023-07-20] MEDS: HYDROmorphone 1 MG/ML Syringe IV (19:04)
[2023-07-20] MEDS: Acetaminophen 325 MG Tablet 650 MG PO (20:07)
[2023-07-20] MEDS: Atorvastatin Calcium 40 MG Tablet PO (20:08)
[2023-07-21] VITALS (10 sets, daily range): BP systolic 92–138; BP diastolic 37–84; PULSE 86–113; RESP 16–24; TEMP 36.3–39.4; O2SAT 92–100; BMI 39.6
[2023-07-21] MEDS: 0.9% Normal Saline (1000mL) 1,000 ML 125 ML IV ×2 (00:51→09:36)
[2023-07-21] MEDS: HYDROmorphone 1 MG/ML Syringe IV ×3 (00:54→09:37)
[2023-07-21] MEDS: Ondansetron 4 MG/2 ML Vial IV ×2 (03:56→21:42)
[2023-07-21] MEDS: Piperacil/Tazobactam 3.375 GM in 0.9% Normal Saline (50mL MB+) 50 ML IV ×3 (05:00→21:40)
[2023-07-21 05:51] LABS: Absolute Lymphocyte Count 1.24 X10^3/uL (0.83-4.51); Absolute Neutrophil Count 8.8 X10^3/uL (2.0-7.7); Basophil# 0.03 X10^3/uL; Basophil% 0.3 % (0-1); Eosinophil# 0.01 X10^3/uL; Eosinophils% 0.1 % (0-5); Hematocrit 35.9 % (37-47); Hemoglobin 11.8 g/dL (12.0-15.0); Lymphocyte # 1.24 X10^3/ul (0.83-4.51); Lymphocyte % 11.8 % (19-41); Mean Corp Hgb Conc 32.9 g/dL (32-36); Mean Corpuscular Hgb 29.9 pg (27.0-32.0); Mean Corpuscular Volume 90.9 fL (81-99); Mean Platelet Vol. 10.8 fl (6.2-12.0); Monocyte# 0.41 X10^3/uL; Monocyte% 3.9 % (0-10); NRBC Flagged by Analyzer 0 % (0-5); Neutrophil # 8.76 X10^3/uL (2.7-7.7); Neutrophil % 83.4 % (47-70); Platelet Count 197 K/mm3 (150-450); RBC Distribution Width CV 12.6 % (11.6-14.6); RBC Distribution Width SD 41.8 fl (35.1-43.9); Red Blood Count 3.95 M/mm3 (4.2-5.4); White Blood Count 10.5 K/mm3 (4.4-11.0)
--- NOTE | 2023-07-21 05:55 | EKG12_ITS ---
Test Reason : AM EKG Blood Pressure : / mmHG Vent. Rate : 111 BPM Atrial Rate : 111 BPM P-R Int : 140 ms QRS Dur : 062 ms QT Int : 286 ms P-R-T Axes : 058 -04 009 degrees QTc Int : 388 ms Sinus tachycardia Low voltage QRS Borderline ECG No previous ECGs available Confirmed by ZARIA TOVAR, KRZYSZTOF ([id number]), tape editor SHERRY BARR ([id number]) on 07/23/2023 11:11:39 AM Referred By: FELIBERTO Confirmed By:KRZYSZTOF ENCISO MD
[2023-07-21 06:21] LABS: ALB/GLOB Ratio 0.8 RATIO (0.9-2.4); AST(SGOT) 28 U/L (15-37); Alanine Aminotransfer ALT/SGPT 44 U/L (13-56); Albumin, Serum 2.9 g/dL (3.2-5.0); Alkaline Phosphatase 77 U/L (45-117); Anion Gap 6 (5-15); BUN 12 mg/dL (7-18); BUN/Creat Ratio 10.4 RATIO (10-20); Calcium,Total 8.1 mg/dL (8.5-10.1); Chloride 104 mmol/L (98-107); Creatinine, Serum 1.15 mg/dL (0.55-1.02); EST Glomerular Filtration Rate 50 mL/min (>60); Est Glom Filt Rate - Afr Amer 60 mL/min (>60); Estimated Creatinine Clearance 39.87 ml/min; Globulin 3.8 g/dL (2.2-4.2); Glucose 114 mg/dL (74-106); Potassium 3.9 mmol/L (3.5-5.1); Protein, Total 6.7 g/dL (6.4-8.2); Sodium Level 136 mmol/L (136-145)
[2023-07-21] MEDS: 0.9% Normal Saline (500mL Bag) 500 ML 999 ML IV (07:41)
--- NOTE | 2023-07-21 07:56 | PCM.PN.SRG ---
Subjective Subjective Patient says she is still having some lower abdominal pain. She did not have any diarrhea overnight. She is still nauseous requiring nausea medication. Objective Data Objective Data Vital Signs: Vital Signs Temp Pulse Resp BP Pulse Ox O2 Del Method O2 Flow Rate 99.2 F H 101 H 16 138/72 H 94 Nasal Cannula 4 07/21/23 06:11 07/21/23 06:11 07/21/23 06:11 07/21/23 06:11 07/21/23 06:11 07/21/23 06:11 07/21/23 06:11 Oxygen Flow Rate (L/min) 4 Oxygen Delivery Method Nasal Cannula Weight: 231 lb 0.006 oz Body Mass Index (BMI) 39.6 Intake & Output: Intake and Output for Last 24 Hours 07/19/23 07/20/23 07/21/23 23:59 23:59 23:59 Intake Total 850 / 900 1150 / 1150 Balance 850 / 900 1150 / 1150 Lab / Micro Data 07/21/23 05:02 07/21/23 05:02 Labs: Laboratory Results - last 24 hr 07/20/23 09:40: WBC 9.7, RBC 4.40, Hgb 13.3, Hct 39.5, MCV 89.8, MCH 30.2, MCHC 33.7, RDW Std Deviation 40.7, RDW Coeff of Miguel 12.3, Plt Count 225, MPV 10.7, Immature Gran % (Auto) 0.400, Neut % (Auto) 87.9 H, Lymph % (Auto) 6.8 L, [place] % (Auto) 4.5, Eos % (Auto) 0.1, Baso % (Auto) 0.3, Absolute Neuts (auto) 8.6 H, Absolute Lymphs (auto) 0.66 L, Nucleated RBC % 0, Sodium 136, Potassium 4.6, Chloride 103, Carbon Dioxide 27.0, Anion Gap 6, BUN 13, Creatinine 1.25 H, Estim Creat Clear Calc 36.68, Est GFR (MDRD) Af Amer 55 L, Est GFR (MDRD) Non-Af 45 L, BUN/Creatinine Ratio 10.4, Glucose 194 H, Calcium 9.2, Total Bilirubin 0.70, AST 35, ALT 57 H, Alkaline Phosphatase 97, Total Protein 7.3, Albumin 3.2, Globulin 4.1, Albumin/Globulin Ratio 0.8 L, Lipase 21 07/21/23 05:02: WBC 10.5, RBC 3.95 L, Hgb 11.8 L, Hct 35.9 L, MCV 90.9, MCH 29.9, MCHC 32.9, RDW Std Deviation 41.8, RDW Coeff of Miguel 12.6, Plt Count 197, MPV 10.8, Immature Gran % (Auto) 0.500, Neut % (Auto) 83.4 H, Lymph % (Auto) 11.8 L, [place] % (Auto) 3.9, Eos % (Auto) 0.1, Baso % (Auto) 0.3, Absolute Neuts (auto) 8.8 H, Absolute Lymphs (auto) 1.24, Nucleated RBC % 0, Sodium 136, Potassium 3.9, Chloride 104, Carbon Dioxide 26.0, Anion Gap 6, BUN 12, Creatinine 1.15 H, Estim Creat Clear Calc 39.87, Est GFR (MDRD) Af Amer 60, Est GFR (MDRD) Non-Af 50 L, BUN/Creatinine Ratio 10.4, Glucose 114 H, Calcium 8.1 L, Total Bilirubin 0.70, AST 28, ALT 44, Alkaline Phosphatase 77, Total Protein 6.7, Albumin 2.9 L, Globulin 3.8, Albumin/Globulin Ratio 0.8 L Micro: Microbiology 07/20/23 14:00 Nasal Secretion SARS-CoV-2 & FLU Antigen (Rapid) - Final Radiography Diagnostic Testing: Radiology Impression Abdomen/Pelvis CT 07/20/23 09:21 IMPRESSION: Cholelithiasis associated with a distended gallbladder, recommend right upper quadrant ultrasound for further characterization. Fatty infiltration of the liver associated with hepatomegaly. Atherosclerosis. Nonobstructing 5.3 mm left renal calculus. Electronically Signed: Debo Stein MD at 10:49 EST , Gallbladder Ultrasound 07/20/23 11:28 IMPRESSION: Fatty infiltration of the liver associated with hepatomegaly. Cholelithiasis associated with a distended gallbladder, a reported positive sonographic Bernabe''s sign, mild gallbladder wall thickening and no pericholecystic fluid, cannot exclude chronic cholecystitis. Electronically Signed: Debo Stein MD at 12:46 EST , Hepatobiliary Scan Nuclear Medicine 07/20/23 15:44 IMPRESSION: Negative hepatobiliary scan. Electronically Signed: Byron Peterson MD at 21:25 EST , Physical Exam Const oriented x3 and no apparent distress Resp normal respiratory effort Cardio regular rhythm Rate: tachycardic GI soft to palpation Inspection: Negative for abdominal distention Palpation: tender LLQ and RLQ Extremity normal to inspection Assessment & Plan Assessment/Plan (1) Gastroenteritis: PLAN: The patient had a HIDA scan yesterday evening which was negative showing that there was good filling of the gallbladder. This is very unlikely to be cholecystitis. Patient is still having some tachycardia and low-grade fever. She says her urine appears dark and I will order her a fluid bolus and I will try clears but I told her to take it easy as she is still nauseated. She is still having the lower abdominal pain. White count is normal. The only thing I could think of would be viral gastroenteritis versus colon injury that was not noted on CT from her colonoscopy. If she still having pain tomorrow I will order a CT with oral contrast to evaluate the colon better. Otherwise I will continue IV fluids today and continue to monitor. Tariq Patel MD Pager: [facility] [address] [place] [address], [address] [place] [address] Office:
[2023-07-21] MEDS: Acetaminophen 325 MG Tablet 650 MG PO ×3 (09:45→21:42)
--- NOTE | 2023-07-21 10:02 | CT_ITS ---
STUDY: CTA CHEST REASON FOR EXAM: Female, 67 years old. Possible pulmonary embolus. RADIATION DOSAGE (If Supplied By Facility): CTDIvol = ( 12.66 ) mGy, DLP = ( 567.16 ) mGycm TECHNIQUE: The examination was performed with the intravenous administration of IV 100mL Isovue-370. Post-processing of the angiographic images was performed, with multiplanar reformation and 3D reconstruction. Individualized dose optimization techniques were used for this CT. COMPARISON: July 19, [address] of the abdomen and pelvis dated July 20, 2023 FINDINGS: Normal enhancement of the main pulmonary artery and right and left pulmonary arteries. Normal enhancement of the bilateral peripheral pulmonary arteries. There is no demonstrated pulmonary embolism. There is atherosclerotic calcification of the aortic arch and descending thoracic aorta. There is no demonstrated aortic dissection. There are calcifications of the coronary arteries. Normal mediastinum. Normal hilar regions. Normal visualized trachea and bronchi. The lungs are well expanded. Normal pulmonary parenchyma. Normal pleura. Normal chest wall structures. There are degenerative changes of thoracic spine. The limited images of the upper abdomen demonstrate diffusely low in attenuation liver consistent with fatty infiltration. CT/CTA Chest W/WO Contrast IMPRESSION: No demonstrated pulmonary embolism or arterial dissection. Atherosclerosis. Fatty infiltration of the liver. Degenerative changes of the thoracic spine. Electronically Signed: Debo Stein MD at 12:45 EST ,
[2023-07-21 10:29] LABS: Color, Urine Yellow (Yellow); Glucose, Dipstick Normal (Normal); Ketone-Dipstick 5 mg/dl (Negative); Leukocyte Esterase-Dipstick 25 /ul (Negative); Nitrite-Dipstick Negative (Negative); Occult Blood-Urine 10 /ul (Negative); Protein-Dipstick 30 mg/dl (Negative); Urine Bilirubin Dipstick Negative (Negative); Urine Clarity Clear (Clear); Urine Urobilinogen Normal (Normal)
[2023-07-21 11:16] LABS: International Normalized Ratio 1.3
[2023-07-21 11:17] LABS: Partial Thromboplast Time 35.2 Seconds (24.1-36.2)
[2023-07-21] MEDS: HEPARIN/D5w 25,000 UNITS 25,000 UNITS/250 ML IV.SOLN. 15 UNITS CONT INF (12:33)
[2023-07-21] MEDS: Heparin Injection (Vial) 5,000 UNIT/ML VIAL 8000 UNIT IV (12:34)
--- NOTE | 2023-07-21 13:12 | PN_ITS ---
Progress Note The floor contact me late morning and inform me that the patient's oxygen saturation had decreased and she was short of breath. Given the fact the p atient had had fever and tachycardia along with groin pain I was concerned for DVT with PE so I ordered a stat CTA and started heparin drip. CT came back normal so heparin drip was stopped. I went and checked on the patient just now the patient is comfortable with no abdominal pain. She reports no nausea. She is having some heartburn and a PPI will be ordered. Continue sips of clears and observation at this time. I consult the hospitalist service as well and they are helping investigate the cause of her pain and fever. Tariq Patel MD Pager: [facility] [address] [place] [address], [address] [place] [address] Office:
--- NOTE | 2023-07-21 14:25 | PCM.CONS.GEN ---
Assessment & Plan Assessment/Plan (1) Fever: (2) Epigastric pain: PLAN: Plan Patient is a 67-year-old female who presented to [facility] ED on 07/20/2023 with worsening abdominal distention and nausea/vomiting. Admitted to general surgery service due to concern for acute cholecystitis. Medicine consulted on hospital day 2 for further management. 1. Fevers Unclear etiology at this time. Seems most likely due to infection, unclear source. Initially thought to be acute cholecystitis given CT abdomen pelvis findings, HIDA scan ruled out cholecystitis. UA on admit not consistent with infection. CTA chest on 07/21 showed no PE, no evidence of pneumonia. Lower extremities appear normal on exam, no need for duplex ultrasound. No clear offending medications noted. WBC count remains in normal range. ? Blood cultures ordered. Tylenol as needed for fevers. Monitor fever curve. 2. Epigastric/abdominal discomfort CT abdomen pelvis on admit was concerning for acute cholecystitis, but HIDA scan ruled out cholecystitis. Could be related to mild abdominal distention secondary to recent colonoscopy. Could be secondary to a viral gastroenteritis. Could be related to patient's known history of GERD. Cannot rule out cardiac etiology but seems less likely. ? CT abdomen pelvis and CTA chest negative for acute pathology. Will obtain troponins x 2 and echocardiogram to rule out cardiac etiology. Continue patient's home PPI with Tums as needed for GERD. 3. Hypoxia Mild, requiring 2 L on morning of 07/21. Suspect this may be due to CHIDI plus or minus obesity hypoventilation syndrome given patient's morbid obesity. CTA chest was negative for PE, showed no parenchymal lung disease. ? Wean supplemental oxygen as able. May need O2 ambulatory testing on discharge. 4. CKD stage IIIa ? Baseline creatinine around 1.2-1.3, GFR 50-60. Creatinine at baseline on admit, continue to monitor. Chronic medical conditions: ? Hyperlipidemia: Continue home statin. ? GERD: Continue home PPI. DVT prophylaxis: Lovenox CODE STATUS: Full code, unverified Expected disposition: TBD Total clinical time spent by myself addressing the patient's medical issues, reviewing all the data, and collaborating with patient's care team: 35 minutes. HPI Consult Data Date of Consult: 07/21/23 HPI Narrative Reason for Consultation: Epigastric/abdominal pain, fevers of unclear origin HPI Narrative: ARIEL VEE, is a 67 F who presented to [facility] ED on 07/20/2023 with abdominal distention and nausea/vomiting. Patient recently completed a routine screening colonoscopy at the outpatient endoscopy center with Dr. Smith 2 days prior to admission. States she woke up from that procedure with bilateral shoulder discomfort that has not gone away since then, and worsened on the day of admission with concurrent nausea and vomiting. Patient notes that she had not had a bowel movement since the procedure, had passed very little flatus. CT abdomen pelvis in the ED showed cholelithiasis associated with a distended gallbladder concerning for acute cholecystitis. Patient was also noted to have a fever in the ED. Patient was admitted to general surgery service for presumed acute cholecystitis. Was initiated on IV Zosyn on admission. HIDA scan was completed on afternoon of 07/20 and was negative for acute right upper quadrant pathology. Patient again spiked a fever of 103F on morning of 07/21 and patient had a new oxygen requirement of 2 L nasal cannula. CTA chest was ordered stat and medicine was consulted for further evaluation. On my exam, patient was sitting comfortably in bed and did not appear to be in any acute distress. Her nasal cannula was in her mouth at 2 L, and she was satting in the mid to high 90s. Patient reported mild epigastric pain at that time which she associated with her history of GERD, and she noted she had not received her PPI medication yet today. She denied any lower leg discomfort. Denied any difficulty breathing or chest pain with taking deep breaths. She denied any fevers or chills. She had no other acute concerns at that time. [facility] Medical History Cancer Former smoker GERD (gastroesophageal reflux disease) Osteoporosis Primary malignant neoplasm of perianal skin Home Medications atorvastatin 40 mg tablet 40 mg PO QHS 04/15/22 [History Last Taken 07/19/23] esomeprazole magnesium 20 mg capsule,delayed release (Nexium 24HR) 20 mg PO DAILY gerd 07/20/23 [History Last Taken 07/20/23] Allergy/AdvReac Type Severity Reaction Status Date / Time No Known Allergies Allergy Verified 07/20/23 08:57 Social History Smoking Status: Former smoker ROS Constitutional Constitutional: Denies chills, fatigue, fever(s) or weakness Eyes Eyes: Denies change in vision Cardiovascular Cardiovascular: Denies chest pain, dyspnea on exertion, edema or lightheadedness Respiratory/Chest Respiratory/Chest: Denies cough, shortness of breath at rest, shortness of breath with exertion or wheezing Gastrointestinal Gastrointestinal: Reports abdominal pain and nausea; Denies constipation, diarrhea or vomiting Genitourinary Genitourinary: Denies dysuria Musculoskeletal Musculoskeletal: Denies arthralgias or back pain Neurologic Neurologic: Denies dizziness or focal weakness Physical Exam Const alert, oriented x3 and no apparent distress Constitutional Narrative: Elderly female, morbidly obese, sitting comfortably in bed, conversing normally, no acute distress. General Appearance: cooperative and comfortable HEENT normocephalic, head/scalp atraumatic, hearing grossly normal bilaterally, nasal mucous membranes and turbinates normal and moist oral mucous membranes Eyes PERRL, EOMs intact bilaterally and conjunctivae normal Neck full ROM, no lymphadenopathy and supple Lymph Lymphatic: no lymphadenopathy noted Chest inspection of chest normal Resp Resp Narrative: Satting in mid to high 90s on 2 L nasal cannula, no increased work of breathing noted. Good breath sounds bilaterally, no wheezing or crackles noted. Cardio regular rate, regular rhythm, no murmurs and peripheral pulses 2+ throughout GI GI Narrative: Mild tenderness to palpation in epigastric region, otherwise abdomen soft to palpation and nondistended. Back/Spine normal ROM Extremity normal to inspection, full ROM and no pedal edema Skin no rashes or lesions noted Neuro moves all extremities and no focal motor deficits Speech: speech normal Psych mental status grossly normal Lab / Micro Data 07/21/23 05:02 07/21/23 05:02 Labs: Laboratory Results - last 24 hr 07/21/23 05:02: WBC 10.5, RBC 3.95 L, Hgb 11.8 L, Hct 35.9 L, MCV 90.9, MCH 29.9, MCHC 32.9, RDW Std Deviation 41.8, RDW Coeff of Miguel 12.6, Plt Count 197, MPV 10.8, Immature Gran % (Auto) 0.500, Neut % (Auto) 83.4 H, Lymph % (Auto) 11.8 L, [place] % (Auto) 3.9, Eos % (Auto) 0.1, Baso % (Auto) 0.3, Absolute Neuts (auto) 8.8 H, Absolute Lymphs (auto) 1.24, Nucleated RBC % 0, Sodium 136, Potassium 3.9, Chloride 104, Carbon Dioxide 26.0, Anion Gap 6, BUN 12, Creatinine 1.15 H, Estim Creat Clear Calc 39.87, Est GFR (MDRD) Af Amer 60, Est GFR (MDRD) Non-Af 50 L, BUN/Creatinine Ratio 10.4, Glucose 114 H, Calcium 8.1 L, Total Bilirubin 0.70, AST 28, ALT 44, Alkaline Phosphatase 77, Total Protein 6.7, Albumin 2.9 L, Globulin 3.8, Albumin/Globulin Ratio 0.8 L 07/21/23 10:00: Urine Color Yellow, Urine Clarity Clear, Urine pH 5.0, Ur Specific [place] 1.020, Urine Protein 30 H, Urine Glucose (UA) Normal, Urine Ketones 5 H, Urine Occult Blood 10 H, Urine Nitrite Negative, Urine Bilirubin Negative, Urine Urobilinogen Normal, Ur Leukocyte Esterase 25 H 07/21/23 10:37: PT 16.0 H, INR 1.3, APTT 35.2 Micro: Microbiology 07/20/23 14:00 Nasal Secretion SARS-CoV-2 & FLU Antigen (Rapid) - Final Imagaing Radiology Impression Hepatobiliary Scan Nuclear Medicine 07/20/23 15:44 IMPRESSION: Negative hepatobiliary scan. Electronically Signed: Byron Peterson MD at 21:25 EST , Chest CTA 07/21/23 10:02 IMPRESSION: No demonstrated pulmonary embolism or arterial dissection. Atherosclerosis. Fatty infiltration of the liver. Degenerative changes of the thoracic spine. Electronically Signed: Debo Stein MD at 12:45 EST , Charges/Coding Visit Charges Inpatient E&M: 25144 Subs Hosp L2
--- NOTE | 2023-07-21 14:26 | ECHOD_ITS ---
Reason For Study: CHEST PAIN Procedure This was a 2D Doppler, Color Flow transthoracic echocardiogram. Exam performed portable in patient room. Left Ventricle Normal LV size. The estimated ejection fraction is 65 %. Stage 2 diastolic dysfunction. Left ventricular systolic function is normal. No regional wall motion abnormalities noted. Right Ventricle Normal RV size. Normal systolic function. Atria The left and right atria are normal. Mitral Valve Moderate mitral annular calcification. Mild mitral valve stenosis. Trivial mitral valve insufficiency. Tricuspid Valve Normal tricuspid valve. Mild (1+) tricuspid valve insufficiency. Right ventricular systolic pressure estimated to be 51 mmHg. Aortic Valve Mild focal aortic valve calcification. Mild aortic stenosis. Pulmonic Valve The pulmonic valve is not well visualized. Great Vessels Normal aortic root. Pericardium/Pleural No pericardial effusion. MMode/2D Measurements & Calculations LVIDd: 4.2 cm IVSd: 1.1 cm Ao root diam: 3.0 cm LVIDs: 2.9 cm LVPWd: 0.95 cm RVDd: 2.8 cm FS: 30.4 % LAV(MOD-bp): 74.5 ml LVAd ap4: 20.3 cm2 LVAd ap2: 25.6 cm2 LAV(MOD-bp) Indexed: 35.8 ml/m2 LVLd ap4: 7.1 cm LVLd ap2: 8.0 cm LAV(MOD-sp2): 68.2 ml EDV(MOD-sp4): 49.8 ml EDV(MOD-sp2): 67.4 ml LAV(MOD-sp4): 68.4 ml EDV(sp4-el): 49.4 ml EDV(sp2-el): 69.6 ml LVAs ap4: 9.7 cm2 LVAs ap2: 12.4 cm2 LVLs ap4: 5.1 cm LVLs ap2: 6.2 cm ESV(MOD-sp4): 17.2 ml ESV(MOD-sp2): 22.2 ml ESV(sp4-el): 15.6 ml ESV(sp2-el): 21.1 ml EF(MOD-sp4): 65.4 % EF(MOD-sp2): 67.1 % EF(sp4-el): 68.4 % SV(MOD-sp4): 32.6 ml SV(MOD-sp2): 45.2 ml SV(sp4-el): 33.8 ml LA dimension(2D): 4.2 cm LA A4 area: 24.1 cm2 RA A4 area: 15.0 cm2 TAPSE: 2.2 cm Time Measurements MV dec time: 0.24 sec Doppler Measurements & Calculations MV E max dionicio: 161.5 cm/sec Lat Peak E' Dionicio: 8.3 cm/sec Med Peak E' Dionicio: 9.7 cm/sec MV A max dionicio: 156.3 cm/sec E/E' lat: 19.4 E/E' med: 16.7 MV E/A: 1.0 MV V2 max: 195.1 cm/sec MV P1/2t max dionicio: 168.3 cm/sec Ao V2 max: 218.2 cm/sec MV max P.2 mmHg MV P1/2t: 65.1 msec Ao max P.0 mmHg MV V2 mean: 140.9 cm/sec MV dec slope: 757.5 cm/sec2 Ao V2 mean: 156.0 cm/sec MV mean P.3 mmHg Ao mean P.0 mmHg MV V2 VTI: 45.4 cm MVA(P1/2t): 3.4 cm2 Ao V2 VTI: 40.5 cm AV (velocity ratio): 0.70 LV V1 max: 139.1 cm/sec MR max dionicio: 498.1 cm/sec PA V2 max: 116.6 cm/sec LV V1 max P.7 mmHg MR max P.3 mmHg PA V2 mean: 88.5 cm/sec LV V1 mean P.7 mmHg MR mean dionicio: 434.4 cm/sec LV V1 mean: 102.1 cm/sec MR mean P.7 mmHg LV V1 VTI: 28.2 cm MR VTI: 120.7 cm TR max dionicio: 346.5 cm/sec TR max P.0 mmHg ECHO/Echo Complete Interpretation Summary The estimated ejection fraction is 65 %. Stage 2 diastolic dysfunction. Mild mitral valve stenosis. Right ventricular systolic pressure estimated to be 51 mmHg. Mild aortic stenosis. No previous echo study to compare The study was technically difficult. Ordering Physician: Roman Riojas Referring Physician: Lalita Barrera Performed By: Nadira Pearson, MICHEAL, RVT
[2023-07-21] MEDS: Pantoprazole Sodium 40 MG Tablet PO (15:33)
[2023-07-21 15:47] LABS: Troponin-I HS 28 pg/mL (3.0-54.0)
--- NOTE | 2023-07-21 16:39 | CT_ITS ---
STUDY: CT Abdomen And Pelvis W/O Contrast Injection 07/21/2023 8:13 PM REASON FOR EXAM: Female, 67 years old. Abdominal pain lower abdominal pain Individualized dose optimization techniques were used for this CT. COMPARISON: None. TECHNIQUE: CT Abdomen And Pelvis W/O Contrast Injection Oral Gastrografin FINDINGS: There are atherosclerotic calcifications of visualized coronary arteries. The visualized portions of the heart are within normal limits. There is decreased attenuation of the liver consistent with steatosis. There are multiple gallstones. Normal spleen. Normal pancreas. Enlarged liver. Normal bilateral adrenal glands. No acute findings of the right kidney. Non obstructive 2 mm left renal parenchymal stones. Normal visualized stomach. Normal small intestine. Stool throughout the colon. The appendix is visualized and appears normal. There are calcifications of the abdominal aorta. This is consistent for atherosclerotic disease. There is NO abdominal aortic aneurysm. Vascular workup can be obtained based on clinical correlation. Normal inferior vena cava. Subcentimeter mesenteric lymph nodes. Normal urinary bladder. There is atrophy of the uterus. Total right hip arthroplasty. Normal abdominal wall. There are diffuse degenerative changes of the visualized lumbar spine. There is bilateral neural foraminal stenosis at L4-5 and L5-S1. CT/Abdomen/Pel W ORAL Cont Only IMPRESSION: (NOT LISTED IN ORDER OF SIGNIFICANCE) Fatty liver. Hepatomegaly. There are multiple gallstones. Other findings as above. Electronically Signed: Bill Estrada MD at 20:16 EST ,
--- NOTE | 2023-07-21 16:41 | VDLE_ITS ---
Reason For Study: Pain BLE RIGHT LEFT GSV is normal. GSV is normal. CFV is compressible, spontaneous, phasic, CFV is compressible, spontaneous, phasic, competent and demonstrates normal competent, and demonstrates normal augmentation. augmentation. FV is compressible, spontaneous, phasic, FV is compressible, spontaneous, phasic, competent and demonstrates normal competent and demonstrates normal augmentation. augmentation. POP V is compressible, spontaneous, phasic, POP V is compressible, spontaneous, phasic, competent and demonstrates normal competent and demonstrates normal augmentation. augmentation. T/P Trunk is compressible. T/P Trunk is compressible. PTV is compressible. PTV is compressible. RT PerV is compressible. LT PerV is compressible. Procedure This is a venous duplex using B-mode, color flow and spectral Doppler. Exam performed portable in patient room. A preliminary report was called and/or faxed to Rad[facility]IG[facility]. VL/Venous Duplex US - Larry Extrem Interpretation Summary No evidence for acute deep venous thrombosis bilateral lower extremities with p atent and compressible bilateral great saphenous veins. Ordering Physician: Tariq Patel Referring Physician: Moni Barrera Performed By: Bernadine Tineo, MICHEAL, RVT
[2023-07-21] MEDS: Vancomycin HCl 2,000 MG in 0.9% Normal Saline (500mL Bag) 500 ML 250 MG IV (18:03)
--- NOTE | 2023-07-21 19:10 | PCM.RX.CS ---
Consult Antibiotic Management Pharmacy has been consulted to manage selected antiobiotic: Vancomycin Type of Intervention Type of Consult: New start Labs Labs: Sodium 136 mmol/L (136-145) 07/21/23 05:02 Potassium 3.9 mmol/L (3.5-5.1) 07/21/23 05:02 Chloride 104 mmol/L (98-107) 07/21/23 05:02 Carbon Dioxide 26.0 mmol/L (21.0-32.0) 07/21/23 05:02 Anion Gap 6 (5-15) 07/21/23 05:02 BUN 12 mg/dL (7-18) 07/21/23 05:02 Creatinine 1.15 mg/dL (0.55-1.02) H 07/21/23 05:02 Est GFR (MDRD) Af Amer 60 mL/min (>60) 07/21/23 05:02 Est GFR (MDRD) Non-Af 50 mL/min (>60) L 07/21/23 05:02 BUN/Creatinine Ratio 10.4 RATIO (10-20) 07/21/23 05:02 Glucose 114 mg/dL (74-106) H 07/21/23 05:02 Microbiology Microbiology: Microbiology 07/20/23 14:00 Nasal Secretion SARS-CoV-2 & FLU Antigen (Rapid) - Final Dosing Weight Weight used for dosin.8 kg Estimated Creatinine Clearance Estimated Creatinine Clearance: 54 Goal Trough Goal Trough: 15-20 mcg/mL Pharmacy Plan for Drug Dosing Pharmacy Plan for Drug Dosing: Pharmacy Service will continue to monitor and adjust dosing as required. Follow-Up Labs Follow-Up Labs: Trough: Vancomycin Date/Time Labs Ordered Labs to be done on [date and time ordered]: 07/23 @ 5977
[2023-07-21] MEDS: Atorvastatin Calcium 40 MG Tablet PO (21:43)
[2023-07-22] MEDS: 0.9% Normal Saline (1000mL) 1,000 ML 75 ML IV (01:15)
[2023-07-22 03:00] VITALS: O2SAT 100
[2023-07-22 03:31] VITALS: BP 120/55; PULSE 93; RESP 20; TEMP 36.3; O2SAT 100
[2023-07-22] MEDS: Acetaminophen 325 MG Tablet 650 MG PO ×3 (03:37→15:59)
[2023-07-22] MEDS: Ondansetron 4 MG/2 ML Vial IV (03:38)
[2023-07-22] MEDS: Vancomycin IV 1,000 MG/200 ML BAG 200 MG IV ×2 (05:21→18:05)
[2023-07-22] MEDS: Piperacil/Tazobactam 3.375 GM in 0.9% Normal Saline (50mL MB+) 50 ML IV ×3 (06:45→22:05)
[2023-07-22 06:54] VITALS: TEMP 36.5; O2SAT 96
--- NOTE | 2023-07-22 07:26 | PCM.PN.SRG ---
Subjective Subjective The patient reports that she had some mild nausea this morning but no vomiting. She is not complaining of any abdominal pain at this time but she says that both of her legs are hurting very badly and she was unable to walk overnight. She says they hurt from her hips down to her knees. Objective Data Objective Data Vital Signs: Vital Signs Temp Pulse Resp BP Pulse Ox O2 Del Method O2 Flow Rate 97.7 F L 93 20 H 120/55 L 96 Room Air 2 07/22/23 06:54 07/22/23 03:31 07/22/23 03:31 07/22/23 03:31 07/22/23 06:54 07/22/23 06:54 07/22/23 03:31 Oxygen Flow Rate (L/min) 2 Oxygen Delivery Method Room Air Weight: 231 lb 0.006 oz Body Mass Index (BMI) 39.6 Intake & Output: Intake and Output for Last 24 Hours 07/20/23 07/21/23 07/22/23 23:59 23:59 23:59 Intake Total 850 / 900 4679.16 / 4879.16 896.25 / 896.25 Balance 850 / 900 4679.16 / 4879.16 896.25 / 896.25 Lab / Micro Data 07/21/23 05:02 07/21/23 05:02 Labs: Laboratory Results - last 24 hr 07/21/23 10:00: Urine Color Yellow, Urine Clarity Clear, Urine pH 5.0, Ur Specific [place] 1.020, Urine Protein 30 H, Urine Glucose (UA) Normal, Urine Ketones 5 H, Urine Occult Blood 10 H, Urine Nitrite Negative, Urine Bilirubin Negative, Urine Urobilinogen Normal, Ur Leukocyte Esterase 25 H 07/21/23 10:37: PT 16.0 H, INR 1.3, APTT 35.2 07/21/23 15:00: Troponin I High Sens 28 Micro: Microbiology 07/20/23 14:00 Nasal Secretion SARS-CoV-2 & FLU Antigen (Rapid) - Final Radiography Diagnostic Testing: Radiology Impression Chest CTA 07/21/23 10:02 IMPRESSION: No demonstrated pulmonary embolism or arterial dissection. Atherosclerosis. Fatty infiltration of the liver. Degenerative changes of the thoracic spine. Electronically Signed: Debo Stein MD at 12:45 EST , Abdomen CT 07/21/23 16:39 IMPRESSION: (NOT LISTED IN ORDER OF SIGNIFICANCE) Fatty liver. Hepatomegaly. There are multiple gallstones. Other findings as above. Electronically Signed: Bill Estrada MD at 20:16 EST , Physical Exam Const oriented x3 and no apparent distress Resp normal respiratory effort GI soft to palpation and non-tender Assessment & Plan Assessment/Plan (1) Gastroenteritis: PLAN: Still unsure as to the etiology of her pain. The patient had CTA of the chest yesterday which was negative. She then became tachycardic and started having more lower abdominal pain and she became tachypneic and febrile again yesterday evening. A CT with oral contrast of the abdomen to evaluate the colon was ordered and the colon still appeared normal with no signs of injury or colitis. The patient's legs are still hurting her and she has a Doppler of the lower extremities pending. Medicine is on board and I appreciate any input as to diagnosis and workup. They added vancomycin yesterday. Tariq Patel MD Pager: [facility] [address] [place] [address], [address] [place] [address] Office:
[2023-07-22 07:49] VITALS: BP 111/55; PULSE 83; RESP 18; TEMP 36.7; O2SAT 94
--- NOTE | 2023-07-22 07:49 | PN.HOSP_ITS ---
Reason for Visit Reason for Visit: Diagnoses Noninfective gastroenteritis and colitis, unspecified (07/20/23) Calculus of gallbladder with acute cholecystitis without obstruction (07/20/23) Epigastric pain (07/20/23) Fever, unspecified (07/20/23) Objective Data Objective Data Vital Signs: Vital Signs Temp Pulse Resp BP Pulse Ox O2 Del Method O2 Flow Rate 97.7 F L 93 20 H 120/55 L 96 Room Air 2 07/22/23 06:54 07/22/23 03:31 07/22/23 03:31 07/22/23 03:31 07/22/23 06:54 07/22/23 06:54 07/22/23 03:31 Oxygen Flow Rate (L/min) 2 Oxygen Delivery Method Room Air Weight: 104.78 kg Body Mass Index (BMI) 39.6 Intake & Output: Intake and Output for Last 24 Hours 07/20/23 07/21/23 07/22/23 23:59 23:59 23:59 Intake Total 850 / 900 4679.16 / 4879.16 896.25 / 896.25 Balance 850 / 900 4679.16 / 4879.16 896.25 / 896.25 Lab / Micro Data 07/21/23 05:02 07/21/23 05:02 Labs: Laboratory Results - last 24 hr 07/21/23 10:00: Urine Color Yellow, Urine Clarity Clear, Urine pH 5.0, Ur Specific [place] 1.020, Urine Protein 30 H, Urine Glucose (UA) Normal, Urine Ketones 5 H, Urine Occult Blood 10 H, Urine Nitrite Negative, Urine Bilirubin Negative, Urine Urobilinogen Normal, Ur Leukocyte Esterase 25 H 07/21/23 10:37: PT 16.0 H, INR 1.3, APTT 35.2 07/21/23 15:00: Troponin I High Sens 28 Micro: Microbiology 07/20/23 14:00 Nasal Secretion SARS-CoV-2 & FLU Antigen (Rapid) - Final Radiography Diagnostic Testing: Radiology Impression Chest CTA 07/21/23 10:02 IMPRESSION: No demonstrated pulmonary embolism or arterial dissection. Atherosclerosis. Fatty infiltration of the liver. Degenerative changes of the thoracic spine. Electronically Signed: Debo Stein MD at 12:45 EST , Abdomen CT 07/21/23 16:39 IMPRESSION: (NOT LISTED IN ORDER OF SIGNIFICANCE) Fatty liver. Hepatomegaly. There are multiple gallstones. Other findings as above. Electronically Signed: Bill Estrada MD at 20:16 EST Reading Location ID and State: [facility] / MD , Service support , Physical Exam Narrative GENERAL: cooperative HEENT: Atraumatic; normocephalic EYES; Anicteric, Normal Conjunctiva NECK; supple, normal thyroid, RESPIRATORY: Diminished to auscultation CARDIOVASCULAR: Regular S1 S2, GI: soft, normoactive bowel sounds, : No Renal angle tenderness; EXTREMITIES: No edema, no clubbing, MUSCULOSKELETAL: no muscle wasting NEURO: Awake; no lateralizing signs. SKIN: No Rash PSYCH; Flat affect Assessment & Plan Assessment/Plan (1) Fever: (2) Epigastric pain: PLAN: Plan Patient is a 67-year-old lady admitted with multiple complaints including abdominal distention, nausea vomiting as well as fevers. 1. Fever of undetermined etiology ? Acute cystitis was initially suspected based on CT findings HIDA scan was however unremarkable. As part of patient's evaluation ordered COVID screen her initial rapid COVID test was negative 2. Dyspepsia ? Etiology so far unremarkable. Patient is on PPI. Patient has been admitted to the general surgery service management deferred 3. Acute hypoxia ? Requiring 2 L. CTA of the chest was negative for PE nor any parenchymal lung disease 4. Class II obesity with BMI of 39.7 ? Complicating care weight loss advised 5. Suspected obesity hypoventilation syndrome/obstructive sleep apnea ? Patient to undergo sleep evaluation as outpatient 6. Chronic kidney disease stage IIIa ? Kidney function at baseline 7. GERD ? On PPI 8. Dyslipidemia -Patient is on statin therapy, continued at home dose 9. DVT prophylaxis - On enoxaparin Time spent in the patient's overall evaluation,decision-making process, review of diagnostic data, adjustment of management, discussion with other providers, nursing nursing and ancillary staff involved in patient's care documentation, 40 Minutes Charges/Coding Visit Charges Inpatient E&M: 07893 Subs Hosp L2
[2023-07-22] MEDS: Enoxaparin 40 MG/0.4 ML Syringe SC (08:00)
[2023-07-22] MEDS: Pantoprazole Sodium 40 MG Tablet PO (08:00)
--- NOTE | 2023-07-22 11:36 | NURSING ---
per phone call just received from vascular lab: pt is NEGATIVE for DVT
--- NOTE | 2023-07-22 12:10 | CASEMGMT ---
RN LESVIA Assessment: Face to Face with pt for initial transition planning/care coordination assessment. RN CM introduced self and role at [facility], pt voices understanding and consents to assessment. Pt is A&O x4 and answers all questions appropriately at this time. Pt sitting up in chair in no distress. Care providers, pharmacy, and demographics verified/updated. Admitting Dx: acute cholecystitis PCP:Moni Barrera DIRECTOR SELECTION AND ADMINISTRATION Specialists:ANIL Smith [facility] [place] [facility] Benef[facility]: yes LNOK: Geraldo Segovia, Living Arrangements: Pt lives with in a two story home with 2 steps to enter. Pt reports she is I in ADL's and denies concerns at home. Transportation: Pt drives self and denies concerns with transportation. DME:addi LEONARDO HHC/SNF: HHC in the past, unsure of name of the agency, denies SNF stays. Pt states no concerns with going home at time of dc. Pt states no further concerns/needs. CM to follow. Advised pt to ask CM if any further question/concerns/needs arise, voices understanding. Pt Goal: Home Plan: Home
[2023-07-22 14:12] VITALS: BP 116/44; PULSE 91; RESP 20; TEMP 36.8; O2SAT 93
--- NOTE | 2023-07-22 16:30 | CHAPLAIN ---
Type of Pastoral Visit _x__ Initial Visit ___ Follow-up Visit ___ On-call Visit ___ General Patient Visit ___ Spiritual Assessment ___ Family Conference ___ Bereavement ___ Rapid Response ___ Code Blue ___ Other (describe below) Pastoral Care Referral From _x__ Patient ___ Family ___ Nurse ___ Physician ___ Electronics Warfare Technician ___ Manager Balance ___ Other (describe below) Sacrament/Intervention _x__ Active listening ___ Anointing ___ Christian ___ Bereavement ___ Communion ___ Senait exploration ___ ___ Life review _x__ Prayer ___ Reconciliation ___ Sacrament of Sick ___ Supportive presence ___ Wedding ___ Other (describe below) Pastoral Comments several family members are in the room with the patient; pt has RN administering meds as pt admits to pain; pt requests prayer and specifically for answers to what is cause and how to treat it; presence and prayer given
[2023-07-22] MEDS: 0.9% Normal Saline (250mL Bag) 250 ML 15 ML IV (19:12)
[2023-07-22 20:08] VITALS: BP 131/63; PULSE 85; RESP 16; TEMP 36.4; O2SAT 93
[2023-07-22] MEDS: Atorvastatin Calcium 40 MG Tablet PO (20:15)
[2023-07-22] MEDS: Menthol/Lanolin/Calamine/Znox 113 GM Tube 1 APPLIC TOPICAL (22:06)
[2023-07-23 03:23] VITALS: BP 132/64; PULSE 101; RESP 16; TEMP 36.5; O2SAT 92
[2023-07-23] MEDS: Acetaminophen 325 MG Tablet 650 MG PO ×2 (03:27→14:19)
[2023-07-23 03:57] LABS: Bacteria 0 SEEN /hpf (None Seen); Mucous, Urine 0 SEEN /hpf (<or=2+); Squamous Epithelial Cells - UA 0 SEEN /hpf (5-10); White Blood Cells 0 SEEN /hpf (0-5)
[2023-07-23 04:05] LABS: Color, Urine Yellow (Yellow); Glucose, Dipstick Normal (Normal); Ketone-Dipstick Negative (Negative); Leukocyte Esterase-Dipstick Negative /ul (Negative); Nitrite-Dipstick Negative (Negative); Occult Blood-Urine 150 /ul (Negative); Protein-Dipstick 100 mg/dl (Negative); Specific Gravity, Urine 1.015 (1.002-1.030); Urine Bilirubin Dipstick Negative (Negative); Urine Clarity Clear (Clear); Urine Urobilinogen Normal (Normal)
[2023-07-23 04:13] LABS: Red Blood Cells-Urine 0-5 SEEN /hpf (0-5)
[2023-07-23 05:21] LABS: Absolute Lymphocyte Count 1.13 X10^3/uL (0.83-4.51); Absolute Neutrophil Count 6.7 X10^3/uL (2.0-7.7); Basophil# 0.02 X10^3/uL; Basophil% 0.2 % (0-1); Eosinophil# 0.02 X10^3/uL; Eosinophils% 0.2 % (0-5); Hematocrit 30.5 % (37-47); Hemoglobin 10.1 g/dL (12.0-15.0); Lymphocyte # 1.13 X10^3/ul (0.83-4.51); Lymphocyte % 13.6 % (19-41); Mean Corp Hgb Conc 33.1 g/dL (32-36); Mean Corpuscular Hgb 29.4 pg (27.0-32.0); Mean Corpuscular Volume 88.7 fL (81-99); Mean Platelet Vol. 11.1 fl (6.2-12.0); Monocyte# 0.39 X10^3/uL; Monocyte% 4.7 % (0-10); NRBC Flagged by Analyzer 0 % (0-5); Neutrophil % 80.7 % (47-70); Platelet Count 172 K/mm3 (150-450); RBC Distribution Width CV 12.7 % (11.6-14.6); RBC Distribution Width SD 41.6 fl (35.1-43.9); Red Blood Count 3.44 M/mm3 (4.2-5.4); White Blood Count 8.3 K/mm3 (4.4-11.0)
[2023-07-23 05:35] LABS: Anion Gap 11 (5-15); BUN 10 mg/dL (7-18); BUN/Creat Ratio 10.5 RATIO (10-20); Chloride 107 mmol/L (98-107); Creatinine, Serum 0.95 mg/dL (0.55-1.02); EST Glomerular Filtration Rate 62 mL/min (>60); Est Glom Filt Rate - Afr Amer 75 mL/min (>60); Estimated Creatinine Clearance 48.26 ml/min; Glucose 109 mg/dL (74-106); Magnesium 1.3 mg/dL (1.6-2.6); Phosphorus 2.1 mg/dL (2.5-4.9); Sodium Level 140 mmol/L (136-145)
[2023-07-23 05:37] LABS: Vancomycin, Trough Level 11.4 ug/mL (5.0-15.0)
[2023-07-23] MEDS: Vancomycin HCl 1,250 MG in 0.9% Normal Saline (250mL Bag) 250 ML 167 MG IV (06:04)
[2023-07-23] MEDS: Vancomycin Trough/Random Due 1 LAB MC (06:06)
--- NOTE | 2023-07-23 06:06 | PCM.RX.CS ---
Consult Antibiotic Management Pharmacy has been consulted to manage selected antiobiotic: Vancomycin Type of Intervention Type of Consult: Follow-up Labs Labs: Sodium 140 mmol/L (136-145) 07/23/23 05:07 Potassium 3.0 mmol/L (3.5-5.1) L 07/23/23 05:07 Chloride 107 mmol/L (98-107) 07/23/23 05:07 Carbon Dioxide 22.0 mmol/L (21.0-32.0) 07/23/23 05:07 Anion Gap 11 (5-15) 07/23/23 05:07 BUN 10 mg/dL (7-18) 07/23/23 05:07 Creatinine 0.95 mg/dL (0.55-1.02) 07/23/23 05:07 Est GFR (MDRD) Af Amer 75 mL/min (>60) 07/23/23 05:07 Est GFR (MDRD) Non-Af 62 mL/min (>60) 07/23/23 05:07 BUN/Creatinine Ratio 10.5 RATIO (10-20) 07/23/23 05:07 Glucose 109 mg/dL (74-106) H 07/23/23 05:07 Vancomycin Trough 11.4 ug/mL (5.0-15.0) 07/23/23 05:07 Microbiology Microbiology: Microbiology 07/22/23 11:15 Mucosa - Nasopharyngeal Coronavirus COVID-19 PCR - Final 07/20/23 14:00 Nasal Secretion SARS-CoV-2 & FLU Antigen (Rapid) - Final Goal Trough Goal Trough: 15-20 mcg/mL Pharmacy Plan for Drug Dosing Pharmacy Plan for Drug Dosing: Pharmacy Service will continue to monitor and adjust dosing as required. TROUGH 11.4 @ 11 HOURS. INCREASE TO 1250 Q12H AND FOLLOW UP TROUGH PRIOR TO 4TH DOSE Follow-Up Labs Follow-Up Labs: Trough: Vancomycin Date/Time Labs Ordered Labs to be done on [date and time ordered]: 07/24 @ 3060
--- NOTE | 2023-07-23 07:27 | PN.HOSP_ITS ---
Reason for Visit Reason for Visit: Diagnoses Noninfective gastroenteritis and colitis, unspecified (07/20/23) Calculus of gallbladder with acute cholecystitis without obstruction (07/20/23) Epigastric pain (07/20/23) Fever, unspecified (07/20/23) Subjective Subjective Patient seen appears to be back to baseline. Diagnostic data testing done for hypokalemia and hypophosphatemia as well as hypomagnesemia Objective Data Objective Data Vital Signs: Vital Signs Temp Pulse Resp BP Pulse Ox O2 Del Method O2 Flow Rate 97.7 F L 101 H 16 132/64 H 92 Room Air 2 07/23/23 03:23 07/23/23 03:23 07/23/23 03:23 07/23/23 03:23 07/23/23 03:23 07/23/23 03:23 07/22/23 03:31 Oxygen Flow Rate (L/min) 2 Oxygen Delivery Method Room Air Weight: 104.78 kg Body Mass Index (BMI) 39.6 Intake & Output: Intake and Output for Last 24 Hours 07/21/23 07/22/23 07/23/23 23:59 23:59 23:59 Intake Total 4679.16 / 4879.16 2300.00 / 2300.00 250 / 250 Balance 4679.16 / 4879.16 2300.00 / 2300.00 250 / 250 Lab / Micro Data 07/23/23 05:07 07/23/23 05:07 Labs: Laboratory Results - last 24 hr 07/23/23 01:20: Urine Color Yellow, Urine Clarity Clear, Urine pH 6.0, Ur Sp ecific [place] 1.015, Urine Protein 100 H, Urine Glucose (UA) Normal, Urine K etones Negative, Urine Occult Blood 150 H, Urine Nitrite Negative, Urine Bili corey Negative, Urine Urobilinogen Normal, Ur Leukocyte Esterase Negative, Urine RBC 0-5 SEEN, Urine WBC 0 SEEN, Ur Squamous Epith Cells 0 SEEN, Urine Bacteria 0 SEEN, Urine Mucus 0 SEEN 07/23/23 05:07: WBC 8.3, RBC 3.44 L, Hgb 10.1 L, Hct 30.5 L, MCV 88.7, MCH 29.4, MCHC 33.1, RDW Std Deviation 41.6, RDW Coeff of Miguel 12.7, Plt Count 172, MPV 11.1, Immature Gran % (Auto) 0.600, Neut % (Auto) 80.7 H, Lymph % (Auto) 13.6 L, [place] % (Auto) 4.7, Eos % (Auto) 0.2, Baso % (Auto) 0.2, Absolute Neuts (auto) 6.7, Absolute Lymphs (auto) 1.13, Nucleated RBC % 0, Sodium 140, Potassium 3.0 L , Chloride 107, Carbon Dioxide 22.0, Anion Gap 11, BUN 10, Creatinine 0.95, Estim Creat Clear Calc 48.26, Est GFR (MDRD) Af Amer 75, Est GFR (MDRD) Non-Af 62, BUN/Creatinine Ratio 10.5, Glucose 109 H, Calcium 8.0 L, Phosphorus 2.1 L, Magnesium 1.3 L, Vancomycin Trough 11.4 Micro: Microbiology 07/22/23 11:15 Mucosa - Nasopharyngeal Coronavirus COVID-19 PCR - Final 07/20/23 14:00 Nasal Secretion SARS-CoV-2 & FLU Antigen (Rapid) - Final Radiography Diagnostic Testing: Radiology Impression Echocardiogram 07/21/23 14:26 Interpretation Summary The estimated ejection fraction is 65 %. Stage 2 diastolic dysfunction. Mild mitral valve stenosis. Right ventricular systolic pressure estimated to be 51 mmHg. Mild aortic stenosis. No previous echo study to compare The study was technically difficult. Ordering Physician: Roman Riojas Referring Physician: Lalita Barrera Performed By: Nadira Pearson, MICHEAL, RVT Venous Doppler Study 07/21/23 16:41 Interpretation Summary No evidence for acute deep venous thrombosis bilateral lower extremities with patent and compressible bilateral great saphenous veins. Ordering Physician: Tariq Patel Referring Physician: Moni Barrera Performed By: Bernadine Tineo, MICHEAL, RVT Physical Exam Narrative GENERAL: cooperative HEENT: Atraumatic; normocephalic EYES; Anicteric, Normal Conjunctiva NECK; supple, normal thyroid, RESPIRATORY: Diminished to auscultation CARDIOVASCULAR: Regular S1 S2, GI: soft, normoactive bowel sounds, : No Renal angle tenderness; EXTREMITIES: No edema, no clubbing, MUSCULOSKELETAL: no muscle wasting NEURO: Awake; no lateralizing signs. SKIN: No Rash PSYCH; Flat affect Assessment & Plan Assessment/Plan (1) Fever: (2) Epigastric pain: PLAN: Plan Patient is a 67-year-old lady admitted with multiple complaints including abdominal distention, nausea vomiting as well as fevers. 1. Fever of undetermined etiology ? Acute cystitis was initially suspected based on CT findings HIDA scan was however unremarkable. As part of patient's evaluation ordered COVID screen her initial rapid COVID test was negative 2. Dyspepsia ? Etiology so far unremarkable. Patient is on PPI. Patient has been admitted to the general surgery service management deferred 3. Acute hypoxia ? Requiring 2 L. CTA of the chest was negative for PE nor any parenchymal lung disease 4. Class II obesity with BMI of 39.7 ? Complicating care weight loss advised 5. Suspected obesity hypoventilation syndrome/obstructive sleep apnea ? Patient to undergo sleep evaluation as outpatient 6. Chronic kidney disease stage IIIa ? Kidney function at baseline 7. GERD ? On PPI 8. Dyslipidemia -Patient is on statin therapy, continued at home dose 9. DVT prophylaxis - On enoxaparin 10. Hypokalemia ? Corrected per protocol 11. Hypophosphatemia ? Corrected per protocol 12. Hypomagnesemia ? Corrected per protocol prescription written for discharge Time spent in the patient's overall evaluation,decision-making process, review of diagnostic data, adjustment of management, discussion with other providers, nursing nursing and ancillary staff involved in patient's care documentation, 40 Minutes Charges/Coding Visit Charges Inpatient E&M: 47681 Subs Hosp L2
--- NOTE | 2023-07-23 07:40 | PN.SURG_ITS ---
Subjective Subjective Patient evaluated resting comfortably in bed. She notes tolerating her diet yesterday without any abdominal pain. She notes her lower legs are feeling improved from yesterday. She denies nausea, vomiting, fever. Bilateral lower extremity doppler completed yesterday with no evidence of acute deep vein thrombosis. Objective Data Objective Data Vital Signs: Vital Signs Temp Pulse Resp BP Pulse Ox O2 Del Method O2 Flow Rate 97.7 F L 101 H 16 132/64 H 92 Room Air 2 07/23/23 03:23 07/23/23 03:23 07/23/23 03:23 07/23/23 03:23 07/23/23 03:23 07/23/23 03:23 07/22/23 03:31 Oxygen Flow Rate (L/min) 2 Oxygen Delivery Method Room Air Weight: 231 lb 0.006 oz Body Mass Index (BMI) 39.6 Intake & Output: Intake and Output for Last 24 Hours 07/21/23 07/22/23 07/23/23 23:59 23:59 23:59 Intake Total 4679.16 / 4879.16 2300.00 / 2300.00 413 / 413 Balance 4679.16 / 4879.16 2300.00 / 2300.00 413 / 413 Lab / Micro Data 07/23/23 05:07 07/23/23 05:07 Labs: Laboratory Results - last 24 hr 07/23/23 01:20: Urine Color Yellow, Urine Clarity Clear, Urine pH 6.0, Ur Specific [place] 1.015, Urine Protein 100 H, Urine Glucose (UA) Normal, Urine Ketones Negative, Urine Occult Blood 150 H, Urine Nitrite Negative, Urine Bilirubin Negative, Urine Urobilinogen Normal, Ur Leukocyte Esterase Negative, Urine RBC 0-5 SEEN, Urine WBC 0 SEEN, Ur Squamous Epith Cells 0 SEEN, Urine Bacteria 0 SEEN, Urine Mucus 0 SEEN 07/23/23 05:07: WBC 8.3, RBC 3.44 L, Hgb 10.1 L, Hct 30.5 L, MCV 88.7, MCH 29.4, MCHC 33.1, RDW Std Deviation 41.6, RDW Coeff of Miguel 12.7, Plt Count 172, MPV 11.1, Immature Gran % (Auto) 0.600, Neut % (Auto) 80.7 H, Lymph % (Auto) 13.6 L, [place] % (Auto) 4.7, Eos % (Auto) 0.2, Baso % (Auto) 0.2, Absolute Neuts (auto) 6.7, Absolute Lymphs (auto) 1.13, Nucleated RBC % 0, Sodium 140, Potassium 3.0 L , Chloride 107, Carbon Dioxide 22.0, Anion Gap 11, BUN 10, Creatinine 0.95, Estim Creat Clear Calc 48.26, Est GFR (MDRD) Af Amer 75, Est GFR (MDRD) Non-Af 62, BUN/Creatinine Ratio 10.5, Glucose 109 H, Calcium 8.0 L, Phosphorus 2.1 L, M agnesium 1.3 L, Vancomycin Trough 11.4 Micro: Microbiology 07/22/23 11:15 Mucosa - Nasopharyngeal Coronavirus COVID-19 PCR - Final 07/20/23 14:00 Nasal Secretion SARS-CoV-2 & FLU Antigen (Rapid) - Final Radiography Diagnostic Testing: Radiology Impression Echocardiogram 07/21/23 14:26 Interpretation Summary The estimated ejection fraction is 65 %. Stage 2 diastolic dysfunction. Mild mitral valve stenosis. Right ventricular systolic pressure estimated to be 51 mmHg. Mild aortic stenosis. No previous echo study to compare The study was technically difficult. Ordering Physician: Roman Riojas Referring Physician: Lalita Barrera Performed By: Nadira Pearson RDCS, RVT Venous Doppler Study 07/21/23 16:41 Interpretation Summary No evidence for acute deep venous thrombosis bilateral lower extremities with patent and compressible bilateral great saphenous veins. Ordering Physician: Tariq Patel Referring Physician: Moni Barrera Performed By: Bernadine Tineo, MICHEAL, RVT Physical Exam GI normal to inspection, nondistended, normoactive bowel sounds, soft to palpation and non-tender Assessment & Plan Assessment/Plan (1) Epigastric pain: PLAN: I am following this patient in conjunction with Dr. Nascimento in Dr. Patel's absence. Plan to replace patient's potassium, Phosphorous and Magnesium today Patient seems improved today No surgical intervention being recommended at this time Await medicine input and recommendations Probable discharge later today pending Hospitalist evaluation Charges/Coding Visit Charges Inpatient E&M: 95159 Subs Hosp L1
[2023-07-23 07:56] VITALS: BP 147/65; PULSE 85; RESP 20; TEMP 36.7; O2SAT 94
[2023-07-23] MEDS: 0.9% Normal Saline (250mL Bag) 250 ML 15 ML IV (08:01)
[2023-07-23] MEDS: Piperacil/Tazobactam 3.375 GM in 0.9% Normal Saline (50mL MB+) 50 ML IV ×2 (08:01→14:20)
[2023-07-23] MEDS: Magnesium Sulfate 4gm/100mL 4 GM/100 ML IV.SOLN. IV (08:01)
[2023-07-23] MEDS: Enoxaparin 40 MG/0.4 ML Syringe SC (08:02)
[2023-07-23] MEDS: Pantoprazole Sodium 40 MG Tablet PO (08:02)
[2023-07-23] MEDS: Menthol/Lanolin/Calamine/Znox 113 GM Tube 1 APPLIC TOPICAL (08:03)
[2023-07-23] MEDS: Potassium Chloride Oral Tablet 20 MEQ PO ×2 (10:09→16:04)
[2023-07-23] MEDS: BENZOCAINE/MENTHOL 1 LOZENGE MUCOUS MEM (10:09)
[2023-07-23] MEDS: Magnesium Chloride 64 MG Delay Rel.Tablet 128 MG PO (10:10)
[2023-07-23] MEDS: Potassium Phosphate 40 MMOL in 0.9% Normal Saline (500mL Bag) 500 ML 62.5 MMOL IV (12:08)
[2023-07-23] MEDS: Na Biphos/Potassium Phosphate PACKET 1 PACKET PO ×2 (12:09→14:20)
--- NOTE | 2023-07-23 14:01 | PCM.DC.SUM ---
Providers Date of Admission: 07/20/23 Primary Care Physician: TARYN Dobbs Consultations 07/21/23 10:04 Consult: Hospitalist Routine Consulting Provider: Claudia Cortes Reason for Consult: poss. pe EMERGENT Consult: Yes MD Notified: Yes Date Notified: 07/21/23 Time Notified: 10:04 Method of Notification: Text Reason For Visit: ACUTE CHOLECYSTITIS Diagnosis Discharge Diagnosis (1) Fever: Status: Acute Code(s): R50.9 - Fever, unspecified (2) Epigastric pain: Status: Acute Code(s): R10.13 - Epigastric pain Plan: I am following this patient in conjunction with Dr. Nascimento in Dr. Patel's absence. Plan to replace patient's potassium, Phosphorous and Magnesium today Patient seems improved today No surgical intervention being recommended at this time Await medicine input and recommendations Probable discharge later today pending Hospitalist evaluation Medications at Discharge Home Medications atorvastatin 40 mg tablet 40 mg PO QHS 04/15/22 esomeprazole magnesium 20 mg capsule,delayed release (Nexium 24HR) 20 mg PO DAILY gerd 07/20/23 magnesium chloride 64 mg (magnesium chloride) tablet,delayed release (Mag 64) 128 mg (2 x 64 mg) PO BID #20 tabs 07/23/23 potassium chloride 20 mEq tablet,extended release(part/cryst) 20 meq PO BIDCM #20 tabs 07/23/23 potassium, sodium phosphates 280 mg-160 mg-250 mg oral powder packet 1 packet PO TID #30 ea 07/23/23 Hospital Course Summary of Care Provided Minutes Spent on Discharge: 35 Hospital Course: Patient is a 67 y/o F who presented to the ED with 2 day history of abdominal pain. Patient had a colonoscopy on and started having severe pain when she started to eat. Patient was complaining of pain in her bilateral shoulder, LUQ abdomen, and bilateral groins. She also noted abdominal bloating. A CT scan was ordered of the abdomen and pelvis to rule out a colon perforation following a colonoscopy. CT scan demonstrated possible gallbladder disease. Negative for colon perforation, ileus or bowel obstruction. Labs noted slight elevation of ALT otherwise unremarkable. RUQ u/s was obtained demonstrating suspicious for cholecystitis. She was noted to have gallstones, distention of the gallbladder and positive sonographic Bernabe's sign. Dr. Patel admitted the patient and evaluated her potential acute cholecystis. Patient was noted to have a normal white count with a left shift. She was also noted to have a fever of a 103.1. COVID test and flu testing was obtained which was negative. A HIDA scan was obtained demonstrating negative/normal HIDA scan. Patient developed respiratory distress and tachycardia. Hospitalist was consulted to assist with medical management. A CTA of the chest was obtained, which was negative for pulmonary embolism or arterial dissection. A repeat CT scan of the abdomen with contrast was obtained again on 07/21 which was notable for multiple gallstones, fatty liver, otherwise unremarkable. Patient noted on 07/22, she was having severe amount of pain in her bilateral lower extremities and a venous duplex was obtained which was negative for DVTs bilaterally. Patient was given a regular diet on 07/22. She tolerated a regular diet without any nausea, vomiting. Patient was placed on Vanco in addition to the Zosyn IV. Upon discharge, patient denies abdominal pain, nausea, vomiting. She continues to tolerate a regular diet. Her bilateral lower extremities were less painful and have improved. She is feeling overall much improved. Patient's labs did demonstrate hypokalemia, hypophosphatemia, hypomagnesemia. These electrolytes were all replaced. Patient will be sent home with prescriptions for all of these. Patient will need to follow-up with her PCP in 1 week for lab work. Follow-up with Dr. Patel as needed. Weight / BMI Weight Weight: 231 lb 0.006 oz Body Mass Index (BMI) 39.6 ABG / Lab / Microbiology Data 07/23/23 05:07 07/23/23 05:07 Laboratory: Laboratory Results - last 24 hr 07/23/23 01:20: Urine Color Yellow, Urine Clarity Clear, Urine pH 6.0, Ur Specific [place] 1.015, Urine Protein 100 H, Urine Glucose (UA) Normal, Urine Ketones Negative, Urine Occult Blood 150 H, Urine Nitrite Negative, Urine Bilirubin Negative, Urine Urobilinogen Normal, Ur Leukocyte Esterase Negative, Urine RBC 0-5 SEEN, Urine WBC 0 SEEN, Ur Squamous Epith Cells 0 SEEN, Urine Bacteria 0 SEEN, Urine Mucus 0 SEEN 07/23/23 05:07: WBC 8.3, RBC 3.44 L, Hgb 10.1 L, Hct 30.5 L, MCV 88.7, MCH 29.4, MCHC 33.1, RDW Std Deviation 41.6, RDW Coeff of Miguel 12.7, Plt Count 172, MPV 11.1, Immature Gran % (Auto) 0.600, Neut % (Auto) 80.7 H, Lymph % (Auto) 13.6 L, [place] % (Auto) 4.7, Eos % (Auto) 0.2, Baso % (Auto) 0.2, Absolute Neuts (auto) 6.7, Absolute Lymphs (auto) 1.13, Nucleated RBC % 0, Sodium 140, Potassium 3.0 L, Chloride 107, Carbon Dioxide 22.0, Anion Gap 11, BUN 10, Creatinine 0.95, Estim Creat Clear Calc 48.26, Est GFR (MDRD) Af Amer 75, Est GFR (MDRD) Non-Af 62, BUN/Creatinine Ratio 10.5, Glucose 109 H, Calcium 8.0 L, Phosphorus 2.1 L, Magnesium 1.3 L, Vancomycin Trough 11.4 Microbiology: Microbiology 07/22/23 11:15 Mucosa - Nasopharyngeal Coronavirus COVID-19 PCR - Final 07/20/23 14:00 Nasal Secretion SARS-CoV-2 & FLU Antigen (Rapid) - Final Radiography Diagnostic Testing: Radiology Impression Echocardiogram 07/21/23 14:26 Interpretation Summary The estimated ejection fraction is 65 %. Stage 2 diastolic dysfunction. Mild mitral valve stenosis. Right ventricular systolic pressure estimated to be 51 mmHg. Mild aortic stenosis. No previous echo study to compare The study was technically difficult. Ordering Physician: Roman Riojas Referring Physician: Lalita Barrera Performed By: Nadira Pearson RDCS, RVT D/C Instructions Discharge Diet: Light diet - advance as tolerated Discharge Activity: Return to Normal Activity Please Follow Up With: Clifton Barry MD When: Follow-up in 1 week Meaningful Use Info Meaningful Use Diagnoses (Choose all that apply): None applicable Discharge Plan Admission Admit Date/Time: 07/20/23 15:04 Primary Reason for Your Visit: Gastroenteritis Attending Provider: Luca Carr Primary Care Provider: Moni Barrera [employer] Consulting Providers: Luca Carr; Tariq Patel Discharge Orders/Prescriptions Prescriptions: New potassium chloride 20 mEq Tablet,Er Particles/Crystals 20 meq PO BIDCM Qty: 20 0RF potassium, sodium phosphates 280-160-250 mg Powder In Packet 1 packet PO TID Qty: 30 0RF Mag 64 64 mg Tablet,Delayed Release (Dr/Ec) 128 mg PO BID Qty: 20 0RF No Action atorvastatin 40 mg tablet 40 mg PO QHS esomeprazole magnesium [Nexium 24HR] 20 mg capsule,delayed release(DR/EC) 20 mg PO DAILY Referrals / Follow Up: Clifton Barry MD [Non-Staff] - (Follow-up in 1 week to recheck blood work for your electrolytes) Moni Barrera [employer]SEM[employer], [employer]-C [Primary Care Provider] - Disposition Disposition (needs filled in before D/C Order can be placed): Home, Self Care Charges/Coding Visit Charges Inpatient E&M: 67870 Disch Hosp >30min
--- NOTE | 2023-07-23 14:15 | CASEMGMT ---
RN CM into pt room, nurse present, pt denies any homegoing needs at this time. Pt up indep in room. Pt ready for dc.
[2023-07-23 14:16] VITALS: BP 146/57; PULSE 72; RESP 18; TEMP 36.3; O2SAT 94
== END 2023-07-23 18:45 | disposition home or self-care (01) | DRG 445 ==
LOC: ED 13:05 → MS3 13:22
PROVIDERS: Hospitalist; Internal Medicine; Admitting Provider Surgery; Emergency Provider Emergency Medicine; PCP Registered Nurse; Visit Provider Internal Medicine
DX: K80.20 Calculus of gallbladder without cholecystitis without obstruction (principal); E66.2 Morbid (severe) obesity with alveolar hypoventilation; K76.0 Fatty (change of) liver, not elsewhere classified; N18.31 Chronic kidney disease, stage 3a; E83.39 Other disorders of phosphorus metabolism; E78.5 Hyperlipidemia, unspecified; K21.9 Gastro-esophageal reflux disease without esophagitis; E87.6 Hypokalemia; E83.42 Hypomagnesemia; M79.604 Pain in right leg; M79.605 Pain in left leg; Z68.39 Body mass index [BMI] 39.0-39.9, adult; R09.02 Hypoxemia; R50.9 Fever, unspecified; Z79.899 Other long term (current) drug therapy; Z87.891 Personal history of nicotine dependence
CPT/HCPCS: 36415; 71275; 74176; 76705; 78226; 80048; 80053; 80202; 81001; 81002; 83690; 83735; 84100; 84484; 85025; 85610; 85730; 87040; 87428; 87635; 93005; 93306; 93970; 94668; 99252; 99284; A9537; J7030; J7040; J7050; Q9967; A4216; G0463; J2405

== ENCOUNTER 2023-09-03 19:24 | Emergency (ER) | payer MEDICARE, OTHER, SELFPAY ==
[2023-09-03 19:24] VITALS: BP 166/87; PULSE 74; RESP 18; TEMP 36.1; O2SAT 96; BMI 40.0
[2023-09-03 19:47] LABS: Bacteria 0 SEEN /hpf (None Seen); Mucous, Urine 0 SEEN /hpf (<or=2+); White Blood Cells 0 SEEN /hpf (0-5)
--- OUTSIDE RECORDS SUMMARY | 2023-09-03 19:53 | XMS RPT_ITS | CCD ---
Author Name Unknown Address [address] [place] [address] Organization [facility] Care Team Providers Care Manager Communication Name Role Phone Shira Keith Unavailable Unavailable PROVIDER, UNKNOWN Unavailable Unavailable Shira Keith Unavailable Unavailable Shira Keith Primary Care Provider Jhonny TOVAR, Shira Ferreira Primary Care Provider Shira Keith MD Primary Care Provider Shira Keith MD Primary Care Provider KENDALL CORREA Attending Unavailable DR RICARDO SALINAS MD Primary Care Unavailable Shira Keith MD Primary Care Provider TEZ GOLDMAN Attending Unavailable SHIRA KEITH Primary Care Unavailable KOJO [place] Attending Unavailable SHIRA KEITH Primary Care Unavailable TEZ GOLDMAN Attending Unavailable SHIRA KEITH Primary Care Unavailable Medications Current Medications Medication Drug Class(es) Dates Sig (Normalized) Sig (Original) atorvastatin 40 mg oral tablet (11 sources) HMG-CoA Reductase Inhibitor Start: 08-13-2022 End: 08-06-2023 take 1 tablet by mouth once daily atorvastatin (Lipitor) 40 MG tablet TAKE 1 TABLET BY MOUTH EVERY DAY 90 tablet 1 08/06/2023 Active Problems Active Problems Problem Classification Problem Date Documented Date Episodic/Chronic Allergic reactions (4 sources) Eczema; Translations: [Dermatitis, unspecified] Onset: 07-10-2023 07-10-2023 Episodic Disorders of lipid metabolism (13 sources) Hyperlipidemia; Translations: [Hyperlipidemia, unspecified] Onset: 04-05-2016 02-24-2018 Chronic Esophageal disorders (13 sources) Gastroesophageal reflux disease; Translations: [Gastro-esophageal reflux disease without esophagitis] Onset: 03-07-2015 03-07-2015 Chronic Genitourinary symptoms and ill-defined conditions (8 sources) Increased frequency of urination; Translations: [Frequency of micturition] Onset: 07-10-2023 07-10-2023 Episodic Heart valve disorders (2 sources) Aortic valve stenosis; Translations: [Nonrheumatic aortic (valve) stenosis] Onset: 07-20-2023 07-23-2023 Chronic Osteoarthritis (12 sources) Arthritis; Translations: [Unspecified osteoarthritis, unspecified site] Onset: 03-07-2015 03-07-2015 Chronic Other nervous system disorders (2 sources) Other chronic pain; Translations: [Other chronic pain] Onset: 11-14-2022 Chronic Other nutritional; endocrine; and metabolic disorders (2 sources) Obesity; Translations: [Obesity] 03-07-2015 Chronic Other nutritional; endocrine; and metabolic disorders (9 sources) Body mass index 40+ - severely obese; Translations: [Morbid (severe) obesity due to excess calories] Onset: 03-07-2020 03-07-2020 Chronic Other nutritional; endocrine; and metabolic disorders (2 sources) Morbid (severe) obesity due to excess calories; Translations: [Morbid (severe) obesity due to excess calories (HCC)] Onset: 05-19-2022 Chronic Other nutritional; endocrine; and metabolic disorders (2 sources) Body mass index (BMI) 40.0-44.9, adult; Translations: [Body mass index (BMI) 40.0-44.9, adult (HCC)] Onset: 05-19-2022 Chronic Residual codes; unclassified (1 source) Menopause present; Translations: [Menopause] 03-07-2015 Chronic Spondylosis; intervertebral disc disorders; other back problems (7 sources) Degeneration of lumbar intervertebral disc; Translations: [Other intervertebral disc degeneration, lumbar region] Onset: 08-03-2019 08-03-2019 Chronic Past or Other Problems Problem Classification Problem Date Documented Da te Episodic/Chronic Calculus of urinary tract (6 sources) Kidney stone; Translations: [Calculus of kidney] Onset: 05-03-2022 05-19-2022 Episodic Cardiac dysrhythmias (3 sources) Palpitations; Translations: [Palpitations] Onset: 05-06-2023 05-06-2023 Episodic Mood disorders (4 sources) Mood disorders Onset: 05-06-2023 05-06-2023 Other non-epithelial cancer of skin (11 sources) Carcinoma in situ of perianal skin; Translations: [Carcinoma in situ of skin of trunk] Onset: 03-07-2015 03-07-2015 Episodic Other non-traumatic joint disorders (9 sources) Hip pain; Translations: [Pain in right hip] Onset: 03-07-2015 03-07-2015 Episodic Residual codes; unclassified (8 sources) Menopause present; Translations: [Asymptomatic menopausal state] Onset: 03-07-2015 03-07-2015 Episodic Spondylosis; intervertebral disc disorders; other back problems (12 sources) Low back pain; Translations: [Chronic low back pain] Onset: 08-03-2019 03-07-2015 Episodic Unclassified (9 sources) Encounter for screening mammogram for malignant neoplasm of breast; Translations: [Patient encounter status] Onset: 04-24-2018 Episodic Results Test Name Value Interpretation Reference Range Facil ity Vital Signs Date Time Vital Sign Value Performing Clinician Faci lity 07-10-2023 08:09-0500 Diastolic blood pressure 68 mm[Hg] Tez Bruce AUTOMOTIVE PARTS COORDINATOR - [employer] Work Phone: [facility] 07-10-2023 08:09-0500 Systolic blood pressure 134 mm[Hg] Tezxu Goldman AUTOMOTIVE PARTS COORDINATOR - [employer] Work Phone: [facility] 07-10-2023 07:54-0500 Body height 162.6 cm Tez Goldman AUTOMOTIVE PARTS COORDINATOR - [employer] Work Phone: [facility] 07-10-2023 07:54-0500 Body mass index (BMI) [Ratio] 41.37 kg/m2 Tez Goldman AUTOMOTIVE PARTS COORDINATOR - [employer] Work Phone: [facility] 07-10-2023 07:54-0500 Body temperature 97.7 [degF] Tezxu Goldman AUTOMOTIVE PARTS COORDINATOR - DISPATCHER [employer] Work Phone: [facility] 07-10-2023 07:54-0500 Body weight 109.32 kg Tez Goldman AUTOMOTIVE PARTS COORDINATOR [employer] Work Phone: [facility] 07-10-2023 07:54-0500 Heart rate 89 /min Tez Goldman AUTOMOTIVE PARTS COORDINATOR - DISPATCHER [employer] Work Phone: [facility] 07-10-2023 07:54-0500 SaO2% (BldA) [Mass fraction] 95 % Tez Goldman AUTOMOTIVE PARTS COORDINATOR - DISP[employer]ER [employer] Work Phone: [facility] 05-06-2023 09:43-0400 Body height 162.6 cm Kojo Bridenthal AUTOMOTIVE PARTS COORDINATOR - DISP[employer]ER [employer] Work Phone: [facility] 05-06-2023 09:43-0400 Body mass index (BMI) [Ratio] 41.16 kg/m2 Kojo Bridenthal AUTOMOTIVE PARTS COORDINATOR - DISP[employer] Work Phone: [facility] 05-06-2023 09:43-0400 Body temperature 96.8 [degF] Kojo Bridenthal AUTOMOTIVE PARTS COORDINATOR - DISPATCHER [employer] Work Phone: [facility] 05-06-2023 09:43-0400 Body weight 108.77 kg Kojo Bridenthal AUTOMOTIVE PARTS COORDINATOR - DISPATCHER [employer] Work Phone: [facility] 05-06-2023 09:43-0400 Diastolic blood pressure 64 mm[Hg] Kojo Bridenthal AUTOMOTIVE PARTS COORDINATOR - DISPATCHER [employer] Work Phone: [facility] 05-06-2023 09:43-0400 Heart rate 88 /min Kojo Bridenthal AUTOMOTIVE PARTS COORDINATOR - DISP[employer]ER [employer] Work Phone: [facility] 05-06-2023 09:43-0400 Respiratory rate 20 /min Kojo Bridenthal AUTOMOTIVE PARTS COORDINATOR - DISP[employer]ER [employer] Work Phone: [facility] 05-06-2023 09:43-0400 SaO2% (BldA) [Mass fraction] 96 % Kojo Bridenthal AUTOMOTIVE PARTS COORDINATOR - DISP[employer]ER [employer] Work Phone: [facility] 05-06-2023 09:43-0400 Systolic blood pressure 118 mm[Hg] Kojo Bridenth al AUTOMOTIVE PARTS COORDINATOR - DISPATCHER [employer] Work Phone: [facility] 11-14-2022 10:02-0400 Diastolic blood pressure 86 mm[Hg] Tez Goldman AUTOMOTIVE PARTS COORDINATOR - DISPATCHER [employer] Work Phone: [facility] 11-14-2022 10:02-0400 Systolic blood pressure 126 mm[Hg] Tez Goldman AUTOMOTIVE PARTS COORDINATOR - DISPATCHER [employer] Work Phone: [facility] 11-14-2022 09:45-0400 Body height 162.6 cm Tez Goldman AUTOMOTIVE PARTS COORDINATOR - DISPATCHER [employer] Work Phone: [facility] 11-14-2022 09:45-0400 Body mass index (BMI) [Ratio] 41.54 kg/m2 Tez Goldman AUTOMOTIVE PARTS COORDINATOR - DISPATCHER [employer] Work Phone: [facility] 11-14-2022 09:45-0400 Body weight 109.77 kg Tez Goldman AUTOMOTIVE PARTS COORDINATOR - DISPATCHER [employer] Work Phone: [facility] 11-14-2022 09:45-0400 Heart rate 77 /min Tez Goldman AUTOMOTIVE PARTS COORDINATOR - DISPATCHER [employer] Work Phone: [facility] 11-14-2022 09:45-0400 SaO2% (BldA) [Mass fraction] 98 % Tez Goldman AUTOMOTIVE PARTS COORDINATOR - DISPATCHER [employer] Work Phone: [facility] Encounters Encounter Date Encounter Type Care Provider Facility Start: 08-04-2023 Refill Kojo cao AUTOMOTIVE PARTS COORDINATOR - DISPATCHER [employer] Work Phone: [facility] Start: 07-10-2023 End: 07-10-2023 ambulatory TEZ GOLDMAN [facility] Start: 07-10-2023 End: 07-10-2023 Office outpatient visit 15 minutes Tez Estevez Bruce AUTOMOTIVE PARTS COORDINATOR - DISPATCHER [employer] Work Phone: [facility] Procedures Date Procedure Procedure Detail Performing Clinician Start: 07-10-2023 Urnls dip stick/tabl et rgnt non-auto w/o micrscp Tez Estevez Bruce AUTOMOTIVE PARTS COORDINATOR - DISPATCHER [employer] Work Phone: Start: 05-06-2023 Adult depression scr eening assessment Kojo Oh AUTOMOTIVE PARTS COORDINATOR - DISPATCHER [employer] Work Phone: Start: 05-06-2023 Lipid 1996 panel - S lisa or Plasma Tez Goldman AUTOMOTIVE PARTS COORDINATOR - DISPATCHER [employer] Work Phone: Start: 11-14-2022 Lipid 1996 panel - S lisa or Plasma Shira Keith MD Work Phone: Start: 05-03-2022 Lipid 1996 panel - S lisa or Plasma Tez Bruce AUTOMOTIVE PARTS COORDINATOR - DISPATCHER [employer] Work Phone: Start: 08-03-2021 Mammography Tez Pereztruong estevez AUTOMOTIVE PARTS COORDINATOR - DISP[employer]ER [employer] Work Phone: Start: 06-15-2019 Mri spinal canal lum bar w/o contrast material Ric Feliciano Work Phone: Start: 01-27-2018 Colonoscopy Nael delgado Work Phone: Plan of Treatment Date Care Activity Detail Author Start: 05-06-2028 Lipid panel Lipid Panel [facility] Start: 01-28-2028 Colon cancer screen colonoscopy Colon cancer screen colonoscopy [place] Start: 01-28-2028 Screening for malign ant neoplasm of colon [facility] Start: 11-15-2027 Lipid panel Lipid Panel [facility] Start: 05-03-2027 Lipid panel Lipid Panel [facility] Start: 05-03-2025 Diabetes mellitus screening Diabetes Screening [facility] Start: 07-10-2024 RSV Immunization age d 60 or older (1 - 1-dose 60+ series) RSV Immunization aged 60 or older (1 - 1-dose 60+ series) [facility] Payers Date Payer Category Payer Medicare [id number] 2021 Medicare MEDICARE MEDICAR E PART A AND B [id number] 2021-Present [address] [place] [address] Medicare [id number] 2021 Private Health Insurance [id number] 2021 Private Health Insurance [id number] 2018 Unknown [employer] M [employer] [address] xxxxxxxxxxxx 2018-Present [phone] [address] [place] [address] xxxxxxxxxxxx [id number] 1955 Unknown [id number] Unknown Social History Date Type Detail Facility Start: 03-02-2019 End: 11-14-2022 Tobacco smoking status NHIS Former smoker [place], [place] End: 11-28-1999 History of tobacco use Cigarette Smoker [place] Start: 03-02-2019 End: 05-06-2023 Cigarettes smoked current (pack per day) - Reported [place] Start: 03-02-2019 End: 07-10-2023 Alcohol intake Current non-drinker of alcohol (finding) [place] Start: 1955 Sex Assigned At Not on file [place] End: 11-28-1999 History of tobacco use Current smoker [facility] [employer] Work Phone: Start: 03-07-2015 End: 11-14-2022 Tobacco use and exposure Former smokeless tobacco user [facility] [employer] Work Phone: End: 08-05-1999 History of tobacco use User of smokeless tobacco [facility] Work Phone: Start: 09-06-2020 History SDOH Alcohol Frequency 1 [facility] Work Phone: Start: 09-06-2020 History SDOH Alcohol Std Drinks 99 [facility] Work Phone: Start: 09-06-2020 History SDOH Financial 4 [facility] Work Phone: Start: 09-06-2020 History SDOH Transpo rt Med 2 [facility] Work Phone: Start: 11-04-2022 End: 11-14-2022 Exposure to SARS-CoV-2 (event) Not sure [facility] Start: 11-14-2022 End: 05-06-2023 Tobacco use panel [facility] Start: 06-05-2022 Gender identity Identifies as female gender (finding) [facility] Adolescent depressio n screening assessment 3 [facility] Goals Date Patient Goal Desired Activity /State Clinical Notes 11-14-2022 to 08-06-2023 Telephone Encounter - Jami Helms MA - 08/06/2023 9:24 AM ESTTelephone Encounter - Jami Helms MA - 08/06/2023 9:24 AM Cyndy Helms MA - 07/10/2023 8:00 AM ESTPatient Instructions Note Date & Type Note Facility 08-06-2023 Telephone encounter Note Form atting of this note might be different from the original. Prescription Request: Last medication check: 11/14/22 Last physical exam: 05/06/23 Last completed appointment: 07/10/23 Next scheduled appointment: 11/05/23 Last date of refill on this medication: 02/11/23 [facility] 08-06-2023 Miscellaneous Notes Formattin g of this note might be different from the original. Prescription Request: Last medication check: 11/14/22 Last physical exam: 05/06/23 Last completed appointment: 07/10/23 Next scheduled appointment: 11/05/23 Last date of refill on this medication: 02/11/23 documented in this encounter [facility] 07-10-2023 History of Presen t illness Narrative Patient was verified by name and . Images from the original note were not included. 07/10/2023 Moon Segovia (: 1955) is a 67 y.o. female , Established patient, here for evaluation of the following chief complaint(s): Urinary Frequency ASSESSMENT/PLAN: 1. Urinary frequency - POCT urinalysis dipstick manually resulted - Urine culture - Unable to provide urine sample at time of visit. Sent home with sterile cup and will return to the office once completed. 2. Urinary urgency - POCT urinalysis dipstick manually resulted - Urine culture 3. Eczema, unspecified type - triamcinolone (Kenalog) 0.025 % ointment; Apply topically 2 times daily., Starting 07/10/2023, Normal - Discussed signs and symptoms warranting follow up in the office- verbalized understanding. Follow up if symptoms worsen or fail to improve. SUBJECTIVE/OBJECTIVE: JE Mustafa presents today with concerns of urinary frequency and urgency that has been worsening over the past couple of weeks. Denies dysuria, hematuria, fevers, abdominal pain, flank pain, nausea/vomiting, or chills. Has not taken anything OTC for her symptoms. Denies history of bladder infections. Also has concerns regarding a sore spot behind her right ear that has been present for about 3 weeks. Has tried OTC Neosporin, rubbing alcohol, and peroxide with no improvement. Denies change in size or appearance. Denies known injury/trauma to the area. Health Maintenance: Declines a flu vaccination. Declines to be vaccinated for RSV. Review of Systems Constitutional: Negative for chills and fever. Respiratory: Negative for chest tightness and shortness of breath. Cardiovascular: Negative for chest pain. Gastrointestinal: Negative for abdominal distention, abdominal pain, nausea and vomiting. Genitourinary: Positive for frequency and urgency. Negative for difficulty urinating, dysuria, flank pain and hematuria. Skin: Positive for wound (right ear). Vitals: 07/10/23 0754 07/10/23 0809 BP: (!) 147/74 134/68 Pulse: 89 Temp: 36.5 C (97.7 F) TempSrc: Temporal SpO2: 95% Weight: 241 lb (109 kg) Height: 5' 4 (1.626 m) Body mass index is 41.37 kg/m . Physical Exam Constitutional: General: She is not in acute distress. Appearance: She is not ill-appearing or diaphoretic. Cardiovascular: Rate and Rhythm: Normal rate and regular rhythm. Heart sounds: Normal heart sounds. No murmur heard. No friction rub. Pulmonary: Effort: Pulmonary effort is normal. Breath sounds: Normal breath sounds. No wheezing, rhonchi or rales. Abdominal: General: Bowel sounds are normal. Palpations: Abdomen is soft. There is no mass. Tenderness: There is no abdominal tenderness. There is no right CVA tenderness, left CVA tenderness or guarding. Skin: Comments: Erythematous, dry, scaling rash noted behind right ear. Negative for drainage. Neurological: Mental Status: She is alert and oriented to person, place, and time. Psychiatric: Mood and Affect: Mood normal. Behavior: Behavior normal. Thought Content: Thought content normal. Judgment: Judgment normal. An electronic signature was used to authenticate this note. SOURAV Carney CNP 07/10/2023 8:55 AM documented in this encounter [facility] 05-06-2023 Evaluation + Plan note Associ ated Problem(s): Morbid obesity with BMI of 40.0-44.9, adult (HCC) Encouraged healthy eating, increase activity as tolerated [facility] 05-06-2023 Miscellaneous Notes Associate d Problem(s): Morbid obesity with BMI of 40.0-44.9, adult (HCC) Encouraged healthy eating, increase activity as tolerated Associated Problem(s): GERD (gastroesophageal reflux disease) Controlled on nexium documented in this encounter [facility] 05-06-2023 Evaluation + Plan note Associ ated Problem(s): GERD (gastroesophageal reflux disease) Controlled on nexium [facility] 05-06-2023 History of Presen t illness Narrative Patient was identified by name and Date of . Images from the original note were not included. [facility] [address] [facility] [address] Dept: [phone] Dept Chief Complaint: Moon Segovia is an 67 y.o. female here for an annual wellness visit. Acute complaints: Heart racing occasionally, no known trigger. Has happened about 3 times over the past couple of months. Lasts for about 1 min. Faint. No associated sob or chest pain. Lipids- would like to maybe switch to bempedoic acid from the atorvastatin for her cholesterol. Thinks that the statin may be making her legs and feet ache. Back pain- chronic - states she needs to follow up with Dr. Higuera- orthopedic GERD- reports good control on nexium daily, occasional symptoms but less than 1 time per week and related to diet Assessment/Plan : Problem List Items Addressed This Visit Digestive GERD (gastroesophageal reflux disease) Controlled on nexium Endocrine/Metabolic Morbid obesity with BMI of 40.0-44.9, adult ([facility]) Encouraged healthy eating, increase activity as tolerated Other Hyperlipidemia LDL goal <100 Relevant Orders Lipid panel Other Visit Diagnoses Routine general medical examination at health care facility - Primary Palpitations Relevant Orders Comprehensive metabolic panel CBC TSH I have reviewed and reconciled the medication list with the patient today. Current Outpatient Medications Medication Sig Dispense Refill atorvastatin (Lipitor) 40 MG tablet TAKE 1 TABLET BY MOUTH EVERY DAY 90 tablet 1 cholecalciferol (Vitamin D-3) 50 MCG (1999 UT) capsule Take by mouth. cinnamon 500 MG capsule as directed Cod Liver Oil capsule as directed coenzyme Q-10 200 MG capsule Every 24 hours. esomeprazole (NexIUM) 20 MG packet Take 20 mg by mouth daily. Krill Oil 300 MG capsule Take by mouth. MULTIPLE VITAMINS-MINERALS ER PO Take by mouth. No current facility-administered medications for this visit. Also reviewed during this visit: The following health maintenance schedule was reviewed with the patient and provided in printed form in the after visit summary: Health Maintenance Topic Date Due Medicare Annual Wellness (AWV) Never done Mammogram 08/03/2022 Derm Melanoma Skin Check 08/06/2023 (Originally 07/02/1956) DTaP/Tdap/Td Vaccines (1 - Tdap) 11/14/2023 (Originally 1974) Pneumococcal Vaccine: 65+ Years (1 - PCV) 11/14/2023 (Originally 2018) Zoster Vaccines (1 of 2) 11/14/2023 (Originally 12/31/2003) COVID-19 Vaccine (1) 11/14/2023 (Originally 07/02/1956) Influenza Vaccine (1) 02/02/2024 (Originally 04/05/2023) Depression Screening 05/06/2024 Diabetes Screening 05/03/2025 Lipid Panel 11/15/2027 Colorectal Cancer Screening 01/28/2028 Hepatitis C Screening Completed Bone Density Scan Completed HIB Vaccines Aged Out IPV Vaccines Aged Out Hepatitis A Vaccines Aged Out Meningococcal Vaccine Aged Out Rotavirus Vaccines Aged Out HPV Vaccines Aged Out Hepatitis B Vaccines Discontinued List of current healthcare providers: Patient Care Team: Shira Keith MD as PCP - General Orders Placed This Encounter Procedures Comprehensive metabolic panel Standing Status: Future Number of Occurrences: 1 Standing Expiration Date: 05/06/2024 CBC Standing Status: Future Number of Occurrences: 1 Standing Expiration Date: 05/06/2024 Lipid panel Standing Status: Future Number of Occurrences: 1 Standing Expiration Date: 05/06/2024 TSH Standing Status: Future Number of Occurrences: 1 Standing Expiration Date: 05/06/2024 Subjective : Review of Systems Constitutional: Negative for activity change, appetite change, fatigue, fever and unexpected weight change. HENT: Negative. Respiratory: Negative for cough, chest tightness and shortness of breath. Cardiovascular: Positive for palpitations. Negative for chest pain and leg swelling. Gastrointestinal: Positive for diarrhea (chronic- dneies any change). Negative for abdominal distention, abdominal pain, anal bleeding, constipation, nausea and vomiting. Genitourinary: Negative. Musculoskeletal: Positive for arthralgias and back pain. Chronic Neurological: Negative. Psychiatric/Behavioral: Negative. Physical Exam Constitutional: General: She is not in acute distress. Appearance: She is obese. She is not ill-appearing. HENT: Head: Normocephalic and atraumatic. Right Ear: Tympanic membrane normal. Left Ear: Tympanic membrane normal. Nose: No congestion or rhinorrhea. Mouth/Throat: Mouth: Mucous membranes are moist. Pharynx: Oropharynx is clear. Eyes: Conjunctiva/sclera: Conjunctivae normal. Neck: Vascular: No carotid bruit. Cardiovascular: Rate and Rhythm: Normal rate and regular rhythm. Pulses: Normal pulses. Heart sounds: Normal heart sounds. Pulmonary: Effort: Pulmonary effort is normal. Breath sounds: Normal breath sounds. Abdominal: General: Bowel sounds are normal. There is no distension. Palpations: Abdomen is soft. Tenderness: There is no abdominal tenderness. There is no guarding or rebound. Hernia: No hernia is present. Musculoskeletal: Right lower leg: No edema. Left lower leg: No edema. Lymphadenopathy: Cervical: No cervical adenopathy. Skin: General: Skin is warm and dry. Neurological: Mental Status: She is oriented to person, place, and time. Psychiatric: Mood and Affect: Mood normal. Behavior: Behavior normal. Thought Content: Thought content normal. Judgment: Judgment normal. Over the past 2 weeks, how often have you been bothered by any of the following problems? Trouble falling or staying asleep, or sleeping too much: Several days Feeling tired or having little energy: Several days Poor appetite or overeating: Not at all Feeling bad about yourself - or that you are a failure or have let yourself or your family down: Not at all Trouble concentrating on things, such as reading the newspaper or watching television: Not at all Moving or speaking so slowly that other people could have noticed? Or the opposite - being so fidgety or restless that you have been moving around a lot more than usual.: Not at all Thoughts that you would be better off or hurting yourself in some way: Not at all Patient Health Questionnaire-9 Score: 3 Over the last 2 weeks, how often have you been bothered by any of the following problems? Feeling nervous, anxious, or on edge: Several days Not being able to stop or control worrying: Several days Worrying too much about different things: Several days Trouble relaxing: Not at all Being so restless that it is hard to sit still: Not at all Becoming easily annoyed or irritable: Several days Feeling afraid as if something awful might happen: Several days GERRY-7 Total Score: 5 Health Risk Assessment: General: General In general, how would you say your health is?: Good In the past 7 days, have you experienced any of the following: New or Increased Pain, New or Increased Fatigue, Loneliness, Social Isolation, Stress or Anger?: No Select all that apply: (!) (P) New or Increased Pain, Stress Do you get the social and emotional suppport you need?: Yes Interventions: has cancer so that is ongoing stress. Chronic back pain- needs to Dr. Higuera Health Habits/Nutrition: Health Habits / Nutrition On average, how many days per week do you engage in moderate to strenous exercise (like a brisk walk)?: 1 day On average, how man minutes do you engage in exercise at this level?: 50 min Have you lost any weight without trying in the past 3 months? : No Have you seen the dentist within the past year?: (!) No She is in process of getting new dentist Hearing/ Vision: Hearing / Vision Do you or your family notice any trouble with your hearing that hasn't been managed with hearing aids?: No Do you have difficulty driving, watching TV, or doing any of your daily activities because of your eyesight?: No Have you had an eye exam within the past year?: Appointment is scheduled No results found. Safety: Safety Do you have a working smoke detector?: Yes Do you have any tripping hazards - loose or unsecured carpets or rugs?: No Do you have any tripping hazards - clutter in doorways, halls, or stairs?: No Do you have either shower bars, grab bars, non-slip mats or non-slip surfaces in your shower or bathtub? : Yes Do all your stairways have a railing or banister? : Yes Do you fasten your seatbelt when you are in a car?: Yes ADL: ADL In the past 7 days, did you need help from others to perform any of the following everyday activities: Eating, dressing, grooming,bathing, toileting, or walking / balance? : No In the past 7 days, did you need help from others to take care of any of the following: laundry, housekeeping, banking / finances,shopping, telephone use, food preparation, transportation, or taking medications? : No Living Will: Living Will Do you have a living will?: No Interventions: Advance Care Planning addressed with patient today Cognitive: Cognitive Screening: Mini-Cog Clock Drawing Test (CDT): 2 Words Recalled: 3 Total Score: 5 Total Score Interpretation: Normal Mini-Cog Interventions: Fall Risk: Fall Risk One or more falls in the last year:: (P) No Advised to use a cane or walker to get around safely:: (P) No Feels unsteady when walking:: (P) No Steadies self on furniture while walking at home:: (P) No Worried about falling:: (P) No Depression Screening: Over the past 2 weeks, how often have you been bothered by any of the following problems? Little interest or pleasure in doing things: Several days Feeling down, depressed, or hopeless: Not at all Patient Health Questionnaire-2 Score: 1 Over the past 2 weeks, how often have you been bothered by any of the following problems? Trouble falling or staying asleep, or sleeping too much: Several days Feeling tired or having little energy: Several days Poor appetite or overeating: Not at all Feeling bad about yourself - or that you are a failure or have let yourself or your family down: Not at all Trouble concentrating on things, such as reading the newspaper or watching television: Not at all Moving or speaking so slowly that other people could have noticed? Or the opposite - being so fidgety or restless that you have been moving around a lot more than usual.: Not at all Thoughts that you would be better off or hurting yourself in some way: Not at all Patient Health Questionnaire-9 Score: 3 If you checked off any problems on this questionnaire so far, How difficult have these problems made it for you to do your work, take care of things at home, or get along with other people?: Not difficult at all Sanders Suicide Severity Rating Scale (Screener/Recent Self-Report) 1. Wish to be (Past 1 Month): No 2. Non-Specific Active Suicidal Thoughts (Past 1 Month): No 6. Suicidal Behavior (Lifetime): No Calculated C-SSRS Risk Score (Lifetime/Recent): No Risk Indicated Interventions: Tobacco Use: Social History Tobacco Use Smoking Status Former Packs/day: 1 Types: Cigarettes Quit date: 11/28/1999 Years since quittin.4 Smokeless Tobacco Former Quit date: 08/05/1999 Alcohol Use: none Objective : BP 118/64 Pulse 88 Temp 36 C (96.8 F) (Infrared) Resp 20 Ht 5' 4 (1.626 m) Wt 239 lb 12.8 oz (109 kg) SpO2 96% BMI 41.16 kg/m No results found. documented in this encounter [facility] 05-06-2023 Instructions SOURAV Lockhart CNP - 05/06/2023 9:40 AM EDT Personalized Preventative Plan for Moon Segovia - 05/06/2023 Medicare offers a range of preventative health benefits. Some of the tests and screenings are paid in full while others may be subject to a deductible, co-insurance, and / or copay. Some of these benefits include a comprehensive review of your medical history including lifestyle, illnesses that may run in your family, and various assessments and screenings as appropriate. After reviewing your medical record and screening and assessments performed today, your provider may have ordered immunizations, labs, imaging, and / or referrals for you. A list of these orders (if applicable) as well as your Preventative Care list are included within your After Visit Summary for your review. Other Preventative Recommendations: A preventive eye exam by an emergency management specialist is recommended every 1-2 years to screen for glaucoma, cataracts, macular degeneration, and other eye disorders. A preventive dental visit is recommended every 6 months. Try to get at least 150 minutes of exercise per week or 10,000 steps per day on a pedometer. You need 1200-1500mg of calcium and 5042-7184 international units of vitamin D per day. It is possible to meet your calcium requirement with diet alone, but a vitamin D supplement is usually necessary to meet this goal. When exposed to the sun, use a sunscreen that protects against both UVA and UVB radiation with an SPF of 30 or greater. Reapply every 2-3 hours or after sweating, drying off with a towel, or swimming. Always wear a seat belt when traveling in a car. Always wear a helmet when riding a bicycle or a motorcycle documented in this encounter [facility] 02-11-2023 Telephone encounter Note Form atting of this note might be different from the original. Reviewed chart. Refill appropriate. RX sent. [facility] 02-11-2023 Miscellaneous Notes Formattin g of this note might be different from the original. Reviewed chart. Refill appropriate. RX sent. Prescription Request: Last medication check: 11/14/22 Last physical exam: 05/03/22 Next scheduled appointment: 05/06/23 Last date of refill on this medication 08/13/22 90 day 1 refill documented in this encounter [facility] 02-11-2023 Telephone encounter Note Form atting of this note might be different from the original. Prescription Request: Last medication check: 11/14/22 Last physical exam: 05/03/22 Next scheduled appointment: 05/06/23 Last date of refill on this medication 08/13/22 90 day 1 refill [facility] 11-14-2022 History of Presen t illness Narrative Images from the original note were not included. 11/14/2022 Moon Segovia (: 1955) is a 66 y.o. female , Established patient, here for evaluation of the following chief complaint(s): Hyperlipidemia, GERD (/), Medication Check, and Health Maintenance (Colon--wants referrel, DEXA--declines, Mammo--wants ordered, Pneumo--declines,Shingles--declines, Tdap--declines, COVID--declines, Hep B--declines) ASSESSMENT/PLAN: 1. Gastroesophageal reflux disease, unspecified whether esophagitis present - Comprehensive metabolic panel - Stable with Nexium. Will continue current treatment plan. 2. Arthritis - Comprehensive metabolic panel - Stable. Follow up with specialist as directed. 3. Chronic neck pain - XR cervical spine complete 4 to 5 views - Home exercises provided. - Will notify of x-ray results. 4. Morbid obesity with BMI of 40.0-44.9, adult (HCC) - Comprehensive metabolic panel - Encouraged healthy diet and regular exercise as tolerated. 5. Hyperlipidemia LDL goal <100 - Lipid panel - Comprehensive metabolic panel - Stable with Atorvastatin. Will continue current treatment plan. 6. Screening mammogram for breast cancer - Bilateral screening mammogram 7. Screening for colon cancer - External referral to Gastroenterology Follow up in 6 months (on 05/06/2023) for Next scheduled follow-up. SUBJECTIVE/OBJECTIVE: JE Soraya Mustafa presents today for her 6 month follow up on her chronic health conditions. GERD: Continues to take Nexium and feels this works well for her. Denies abdominal pain or dark black tarry stools. Arthritis: Does not take anything OTC for pain- does not find it helpful. Resting helps the most with her pain. Follows up with Dr. Montoya in [place] and needs to follow back up with him. Has chronic pain on the right side of her neck that will radiate up into her head. Denies pain radiating down her right arm. Hyperlipidemia: Takes Atorvastatin daily as prescribed. Would like her cholesterol rechecked today. Denies chest pain at rest or with activity. Health Maintenance: Would like a mammogram for breast cancer screening. Would like a referral for a colonoscopy for colon cancer screening- would like Dr. Correa in [place]. DEXA scan: 03/22/15. Declines vaccinations for Tdap, pneumonia, shingles, and COVID-19. Declines to be vaccinated for Hep B. Review of Systems Constitutional: Negative for chills and fever. Respiratory: Negative for chest tightness and shortness of breath. Cardiovascular: Negative for chest pain, palpitations and leg swelling. Gastrointestinal: Negative for abdominal distention, abdominal pain and blood in stool. Musculoskeletal: Positive for arthralgias and neck pain. Neurological: Negative for dizziness, syncope, weakness and headaches. Vitals: 11/14/22 0945 11/14/22 1002 BP: (!) 142/82 126/86 Pulse: 77 SpO2: 98% Weight: 242 lb (110 kg) Height: 5' 4 (1.626 m) Physical Exam Constitutional: General: She is not in acute distress. Appearance: She is obese. She is not ill-appearing or diaphoretic. Neck: Vascular: No carotid bruit. Cardiovascular: Rate and Rhythm: Normal rate and regular rhythm. Pulses: Normal pulses. Heart sounds: Normal heart sounds. No murmur heard. No friction rub. Pulmonary: Effort: Pulmonary effort is normal. Breath sounds: Normal breath sounds. No wheezing, rhonchi or rales. Chest: Comments: Bilateral breast symmetrical and smooth without masses. Free from discoloration, thickening of the skin, and prominent pores. Nipples without discharge,asymmetry, ulcerations, rashes, and inversions bilaterally. Breasts free from dimpling and retractions. [place] palpated bilaterally and free from axillary lymphadenopathy. Abdominal: General: Abdomen is protuberant. Bowel sounds are normal. Palpations: Abdomen is soft. There is no hepatomegaly, splenomegaly or mass. Tenderness: There is no abdominal tenderness. Musculoskeletal: Cervical back: Neck supple. No edema, erythema, signs of trauma, rigidity, torticollis or crepitus. Muscular tenderness present. No pain with movement or spinous process tenderness. Normal range of motion. Right lower leg: No edema. Left lower leg: No edema. Skin: General: Skin is warm and dry. Coloration: Skin is not pale. Findings: No erythema. Neurological: Mental Status: She is alert and oriented to person, place, and time. Psychiatric: Mood and Affect: Mood normal. Behavior: Behavior normal. Thought Content: Thought content normal. Judgment: Judgment normal. An electronic signature was used to authenticate this note. SOURAV Carney CNP 11/14/2022 11:03 AM documented in this encounter [facility] Diagnosis Routine general medical examination at health care facility- Primary Routine general medical examination at a health care facility Gastroesophageal reflux disease without esophagitis Esophageal reflux Hyperlipidemia LDL goal <100 Other and unspecified hyperlipidemia Palpitations Morbid obesity with BMI of 40.0-44.9, adult (HCC) [facility]* Diagnosis Urinary frequency- Primary Urinary urgency Urgency of urination Eczema, unspecified type [facility]* Attachments The following attachments cannot be sent through Care Everywhere. * Neck Pain Exercises (Romanian) [facility] Consultation (Routine) - Pending Review Specialty Diagnoses / Procedures Referred By Gregor crook Referred To Contact Gastroenterology Diagnoses Screening for colon cancer Procedures AL OFFICE/OUTPATIENT [facility] MDM 60-74 MINUTES Tez Goldman APRN - CNP [address] [place] [address] Kendall Correa [address] [place] [address] Referral ID Status Reason Start Date Expiration Date Visits Requested Visits Authorized [id number] Pending Review Specialty Services Required 11/14/2022 11/14/2023 1 1 [facility] Summary Purpose Family History No Family History Records FoundNo Family History Records FoundNo Family History Records FoundNo Family History Records FoundNo Family History Records Found Advance Directives No Advanced Directives Records FoundDocuments on File Type Date Recorded Patient Tobacco Acreage Measurer Expl anation Advance Directives and Living Will Power of Business Support Manager Documents on File Type Date Recorded Patient Tobacco Acreage Measurer Expl anation ACP-Advance Directive ACP-Power of Business Support Manager Additional Source Comments INFORMATION SOURCE (unrecogn ized section and content) DATE CREATED AUTHOR AUTHOR'S ORGANIZ ATION 12/28/2021 [facility] DATE CREATED AUTHOR AUTHOR'S ORGANIZ ATION 02/20/2022 [facility] DATE CREATED AUTHOR AUTHOR'S ORGANIZ ATION 01/24/2023 [facility] ([place]) DATE CREATED AUTHOR AUTHOR'S ORGANIZ ATION 08/06/2023 [facility] Care Teams (unrecognized sec tion and content) Manager Communication Relationship Specialty Start Date End Date Shira Keith MD [address] [facility] [place] [phone] PCP - General 11/01/21 Manager Communication Relationship Specialty Start Date End Date Shira Keith MD [address] [facility] [place] [phone] PCP - General 11/01/21 Manager Communication Relationship Specialty Start Date End Date Shira Keith MD [address] [facility] [place] [address] PCP - General 11/01/21 Manager Communication Relationship Specialty Start Date End Date Shira Keith MD [address] [facility] [place] [address] PCP - General 11/01/21 Manager Communication Relationship Specialty Start Date End Date Shira Keith MD [address] [facility] [place] [address] PCP - General 11/01/21 Reason for Visit (unrecogniz ed section and content) Reason Comments Med Refill Reason Comments Medicare Annual Wellness Visit Initial Health Maintenance Derm-she will schedu le with Dr. Morales's office-pt aware she is due Palpitations Reason Comments Urinary Frequency FOR RECORDS PERTAINING TO PATIENTS WHO ARE OR HAVE BEEN ENROLLED IN A CHEMICAL DEPENDENCY/SUBSTANCEABUSE PROGRAM, SOME INFORMATION MAY BE OMITTED. This clinical summary was aggregated from multiple sources. Caution should be exercised in using it in the provision of clinical care. This summary normalizes information from multiple sources, and as a consequence, information in this document may materially change the coding, format and clinical context of patient data. In addition, data may be omitted in some cases. CLINICAL DECISIONS SHOULD BE BASED ON THE PRIMARY CLINICAL RECORDS. [employer] provides no warranty or guarantee of the accuracy or completeness of information in this document.
[2023-09-03 20:02] LABS: Color, Urine Yellow (Yellow); Glucose, Dipstick Normal (Normal); Ketone-Dipstick 5 mg/dl (Negative); Leukocyte Esterase-Dipstick 25 /ul (Negative); Nitrite-Dipstick Negative (Negative); Occult Blood-Urine 250 /ul (Negative); Protein-Dipstick 100 mg/dl (Negative); Urine Bilirubin Dipstick Negative (Negative); Urine Clarity Cloudy (Clear); Urine Urobilinogen 1 mg/dl (Normal)
[2023-09-03 20:09] LABS: Absolute Neutrophil Count 3.5 X10^3/uL (2.0-7.7); Basophil# 0.02 X10^3/uL; Basophil% 0.3 % (0-1); Eosinophils% 1.5 % (0-5); Hematocrit 38.8 % (37-47); Lymphocyte % 37.5 % (19-41); Mean Corp Hgb Conc 33.5 g/dL (32-36); Mean Corpuscular Hgb 29.8 pg (27.0-32.0); Mean Platelet Vol. 10.7 fl (6.2-12.0); Monocyte# 0.54 X10^3/uL; Monocyte% 8.1 % (0-10); NRBC Flagged by Analyzer 0 % (0-5); Neutrophil # 3.48 X10^3/uL (2.7-7.7); Neutrophil % 52.3 % (47-70); Platelet Count 258 K/mm3 (150-450); RBC Distribution Width CV 13.1 % (11.6-14.6); RBC Distribution Width SD 42.7 fl (35.1-43.9); Red Blood Count 4.36 M/mm3 (4.2-5.4); White Blood Count 6.7 K/mm3 (4.4-11.0)
[2023-09-03 20:10] LABS: Red Blood Cells-Urine > 100 SEEN /hpf (0-5); Squamous Epithelial Cells - UA 0-5 SEEN /hpf (5-10)
[2023-09-03 20:12] LABS: ALB/GLOB Ratio 1.1 RATIO (0.9-2.4); AST(SGOT) 30 U/L (15-37); Alanine Aminotransfer ALT/SGPT 52 U/L (13-56); Albumin, Serum 3.7 g/dL (3.2-5.0); Alkaline Phosphatase 89 U/L (45-117); Anion Gap 5 (5-15); BUN 17 mg/dL (7-18); BUN/Creat Ratio 13.1 RATIO (10-20); Calcium,Total 9.2 mg/dL (8.5-10.1); Chloride 111 mmol/L (98-107); EST Glomerular Filtration Rate 43 mL/min (>60); Est Glom Filt Rate - Afr Amer 52 mL/min (>60); Estimated Creatinine Clearance 48.47 ml/min; Globulin 3.4 g/dL (2.2-4.2); Glucose 92 mg/dL (74-106); Protein, Total 7.1 g/dL (6.4-8.2); Sodium Level 143 mmol/L (136-145)
--- NOTE | 2023-09-03 20:16 | CT_ITS ---
EXAM: CT ABDOMEN AND PELVIS WITHOUT INTRAVENOUS CONTRAST CLINICAL INDICATION: Pain TECHNIQUE: Helically acquired images were obtained of the abdomen and pelvis without intravenous contrast. CTDIvol = ( 22.04 ) mGy, DLP = ( 1063.92 ) mGycm This CT exam was performed using one or more of the following dose reduction techniques: automated exposure control, adjustment of the mA and/or kV according to patient size, and/or use of iterative reconstruction technique. COMPARISON: July 21, 2023 FINDINGS: LOWER THORAX: Unremarkable. Lung bases are clear. No cardiomegaly. No significant pericardial effusion. ABDOMEN: LIVER: Unremarkable. Homogeneous. GALLBLADDER AND BILE DUCTS: Cholelithiasis without acute cholecystitis. No intra- or extrahepatic biliary ductal dilation. PANCREAS: Unremarkable. No focal cystic mass. SPLEEN: Unremarkable. Normal size without focal cystic or solid mass. ADRENALS: Unremarkable. No nodules. KIDNEYS AND URETERS: 6 mm right intraureteral calculus at the distal aspect left ureter with mild upstream dilatation of the collecting system. There is slight left perinephric stranding which is likely postobstructive but would still correlate clinically to exclude any superimposed infection. Small exophytic left renal cyst identified. No left renal calyceal calculi identified. No other renal abnormalities. STOMACH AND BOWEL: Unremarkable. No focal inflammatory change. No inflammatory or obstructive changes of bowel. PELVIS: APPENDIX: No evidence of acute appendicitis. BLADDER: Unremarkable. REPRODUCTIVE: Unremarkable as visualized. No mass. ABDOMEN and PELVIS: INTRAPERITONEAL SPACE: Unremarkable. No free air. No free fluid. BONES/JOINTS: Degenerative changes of the spine. Right total hip arthroplasty with satisfactory alignment and no complications. No suspicious lytic or blastic abnormality. SOFT TISSUES: Unremarkable. No discrete abdominal or pelvic wall hernia. VASCULATURE: Unremarkable. Abdominal aorta is non-dilated. LYMPH NODES: Unremarkable. No enlarged lymph nodes. CT/Abdomen/Pelvis without Cont IMPRESSION: Interval passage of calculus from the left renal calyceal position to a distal left intraureteral position with associated mild upstream dilatation of the collecting system. There is slight left perinephric stranding which is likely postobstructive but would still correlate clinically to exclude any superimposed infection. Electronically Signed: Ric Holder MD at 22:44 EST ,
--- NOTE | 2023-09-03 20:19 | EX.ED.DYSGE1 ---
HPI <TARYN Haque - Last Filed: 09/03/23 21:30> History of Present Illness Chief Complaint: Flank Pain Narrative Narrative: Patient is a 67-year-old female with history of hyperlipidemia, GERD who presents to the emerged part with 2 days of left-sided flank pain. Patient states it was minor yesterday however today, she had some nausea, some vomiting, so significant pain from the flank that radiates to her left lower abdomen. Patient did have a obstructing renal calculus last year, patient is concerned that she might have another 1. She denies any fever chills. Patient states she did have some urinary retention earlier today. PFSH <TARYN Haque - Last Filed: 09/03/23 21:30> PFS Medical History Cancer Former smoker GERD (gastroesophageal reflux disease) Osteoporosis Primary malignant neoplasm of perianal skin Home Medications atorvastatin 40 mg tablet 40 mg PO QHS 04/15/22 [History Last Taken 07/19/23] esomeprazole magnesium 20 mg capsule,delayed release (Nexium 24HR) 20 mg PO DAILY gerd 07/20/23 [History Last Taken 07/20/23] multivitamin (Daily Multi-Vitamin tablet) 1 tab PO DAILY 09/03/23 [History Last Taken Unknown] ondansetron 4 mg disintegrating tablet 4 mg PO Q8H PRN PRN Nausea #10 tabs 09/03/23 [Rx Last Taken Unknown] oxycodone-acetaminophen 5 mg-325 mg tablet (Percocet) 1 tab PO Q8H PRN pain 3 days #10 tabs 09/03/23 [Rx Last Taken Unknown] tamsulosin 0.4 mg capsule (Flomax) 0.4 mg PO DAILY #10 caps 09/03/23 [Rx Last Taken Unknown] Allergy/AdvReac Type Severity Reaction Status Date / Time No Known Allergies Allergy Verified 09/03/23 19:24 Social History Smoking Status: Former smoker ROS <TARYN Haque - Last Filed: 09/03/23 21:30> ROS ED ROS Narrative Constitutional: Negative for fever, chills, weight loss, weakness Eyes: Negative for vision loss, vision change, double vision ENT: Negative for any sore throat, ear pain, congestion Cardiovascular: Negative for any chest pain, tightness, palpitations Respiratory: Negative for any cough, sputum production, hemoptysis, dyspnea, dyspnea on exertion, orthopnea Gastrointestinal: Negative for any abdominal pain, vomiting, diarrhea, constipation, blood in stool, blood in vomit. Positive for nausea : Negative for any urinary frequency, dysuria, retention, blood in urine Muscle skeletal: Negative for any myalgias, arthralgias, neck pain. Positive for left-sided flank pain Neurological: Negative for any headache, syncope, paresthesias, dizziness Skin: Negative for any rashes, lumps, itching, abrasions, lacerations Psychiatric: Negative for any depression, anxiety, stress, suicidal ideation, homicidal ideation Hematologic: Negative for any easy bruising, excessive bruising, easy bleeding Allergies: Negative for any eczema, hives, rash EXAM <TARYN Haque - Last Filed: 09/03/23 21:30> Physical Exam Narrative Exam Narrative: Vital signs reviewed. Patient does appear to be in slight discomfort to the left flank HEET: Head normocephalic atraumatic, TMs clear bilaterally. Posterior pharynx is clear, moist mucous membranes. Nares clear bilaterally. Neck: Supple with no lymphadenopathy or tenderness. No signs of meningismus. Cardiac: Regular rate and rhythm no murmurs gallops or rubs, equal peripheral pulses bilaterally. Respiratory: Lungs clear to auscultation bilaterally. No chest tenderness. Abdomen: Soft, nontender, nondistended. No abdominal bruit or pulsatile masses. No hepatosplenomegaly Extremities: No peripheral edema, no signs of gross trauma or deformity. Active full range of motion of all extremities. Neuro: Cranial nerves II through XII intact, no focal neurological deficits. Skin: Clean dry and intact with no rash, purpura, petechiae, vesicles or pustules. Backs/flank: Positive for left-sided CVA tenderness, no midline spinal tenderness, no deformity. Psych: Normal mood and affect. No SI, HI or acute psychosis. Const Vital Signs: 09/03/23 19:24 Temperature 96.9 F L Temperature Source Temporal Pulse Rate 74 Respiratory Rate 18 Blood Pressure 166/87 H Blood Pressure Mean 113 Pulse Ox 96 <Dr. Cipriano Mendez MD - Last Filed: 09/03/23 23:38> Physical Exam Const Vital Signs: 09/03/23 19:24 Temperature 96.9 F L Temperature Source Temporal Pulse Rate 74 Respiratory Rate 18 Blood Pressure 166/87 H Blood Pressure Mean 113 Pulse Ox 96 MDM <Jonathan HernandezTARYN - Last Filed: 09/03/23 21:30> [facility] Lab Data Labs: Laboratory Results - last 24 hr 09/03/23 19:42 WBC 6.7 RBC 4.36 Hgb 13.0 Hct 38.8 MCV 89.0 MCH 29.8 MCHC 33.5 RDW Std Deviation 42.7 RDW Coeff of Miguel 13.1 Plt Count 258 MPV 10.7 Immature Gran % (Auto) 0.300 Neut % (Auto) 52.3 Lymph % (Auto) 37.5 Beauregard % (Auto) 8.1 Eos % (Auto) 1.5 Baso % (Auto) 0.3 Absolute Neuts (auto) 3.5 Absolute Lymphs (auto) 2.50 Nucleated RBC % 0 Sodium 143 Potassium 4.0 Chloride 111 H Carbon Dioxide 27.0 Anion Gap 5 BUN 17 Creatinine 1.30 H Estim Creat Clear Calc 48.47 Est GFR (MDRD) Af Amer 52 L Est GFR (MDRD) Non-Af 43 L BUN/Creatinine Ratio 13.1 Glucose 92 Calcium 9.2 Total Bilirubin 0.40 AST 30 ALT 52 Alkaline Phosphatase 89 Total Protein 7.1 Albumin 3.7 Globulin 3.4 Albumin/Globulin Ratio 1.1 Urine Color Yellow Urine Clarity Cloudy Urine pH 6.0 Ur Specific [place] 1.020 Urine Protein 100 H Urine Glucose (UA) Normal Urine Ketones 5 H Urine Occult Blood 250 H Urine Nitrite Negative Urine Bilirubin Negative Urine Urobilinogen 1 H Ur Leukocyte Esterase 25 H Urine RBC > 100 SEEN Urine WBC 0 SEEN Ur Squamous Epith Cells 0-5 SEEN Urine Bacteria 0 SEEN Urine Mucus 0 SEEN Radiography Diagnostic Testing: Clinical Impression(s) from Imaging Studies Abdomen/Pelvis CT 09/03/23 20:16 IMPRESSION: Interval passage of calculus from the left renal calyceal position to a distal left intraureteral position with associated mild upstream dilatation of the collecting system. There is slight left perinephric stranding which is likely postobstructive but would still correlate clinically to exclude any superimposed infection. Electronically Signed: Ric Holder MD at 22:44 EST , Treatment and Re-Evaluation :: Patient appears to be in mild discomfort secondary to left-sided flank pain. Patient vital signs are stable, patient appears nontoxic. Patient presents to the emergency department with left-sided flank pain for the last 2 days. Differential diagnosis includes muscle spasm, obstructing uropathy, pyelonephritis. Patient received a full flank pain workup including laboratory values, urinalysis, CT scan of the abdomen pelvis without contrast. Patient will receive IV fluids, Zofran, morphine as well as Toradol, she will be reevaluated. All radiologic examinations were read, reviewed by the emergency department attending. From these reads, a plan of care will be put in place. Patient was responding well to analgesic medication. Patient urinalysis was negative for any bacteria, greater than 100 RBCs, 250 blood. Patient's laboratory values showed a normal CBC, chemistries show slight elevated creatinine at 1.3, baseline is between 1.2 and 0.9. <Dr. Cipriano Mendez MD - Last Filed: 09/03/23 23:38> [facility] Narrative Medical decision making narrative: I have personally performed a face to face assessment of the patient and have reviewed the BRITTANY Note. I performed a substantive portion of the visit including all aspects of the following. My ware findings include: History: Patient presents with left flank pain. She feels this is likely a kidney stone which she has had before. She has never required surgery lithotripsy or laser treatment. She states this started yesterday but was mild. It is worse today and it starting to come around the front now. She has had some nausea and vomiting but no fevers. The biggest thing that brought her in if she was having trouble initiating urination. Exam: Patient does look a little uncomfortable. But her abdomen is overall benign. She does have mild CVA tenderness. I see no rashes. Medical Decision Making: Patient's CBC is overall unremarkable. Patient's electrolytes show mild bump of creatinine at 1.3. Liver function test are normal. Urine shows large number of red cells but no white cells. CAT scan is consistent with moderately large distal UVJ stone. I explained to the patient that this is getting to the point where he may have more difficulty passing. But we will still give it some time to pass. She will follow-up with urology. She wants to go home now. The pain is markedly improved. Lab Data Attestation: I reviewed the patient's lab results. Labs: Laboratory Results - last 24 hr 09/03/23 19:42 WBC 6.7 RBC 4.36 Hgb 13.0 Hct 38.8 MCV 89.0 MCH 29.8 MCHC 33.5 RDW Std Deviation 42.7 RDW Coeff of Miguel 13.1 Plt Count 258 MPV 10.7 Immature Gran % (Auto) 0.300 Neut % (Auto) 52.3 Lymph % (Auto) 37.5 Beauregard % (Auto) 8.1 Eos % (Auto) 1.5 Baso % (Auto) 0.3 Absolute Neuts (auto) 3.5 Absolute Lymphs (auto) 2.50 Nucleated RBC % 0 Sodium 143 Potassium 4.0 Chloride 111 H Carbon Dioxide 27.0 Anion Gap 5 BUN 17 Creatinine 1.30 H Estim Creat Clear Calc 48.47 Est GFR (MDRD) Af Amer 52 L Est GFR (MDRD) Non-Af 43 L BUN/Creatinine Ratio 13.1 Glucose 92 Calcium 9.2 Total Bilirubin 0.40 AST 30 ALT 52 Alkaline Phosphatase 89 Total Protein 7.1 Albumin 3.7 Globulin 3.4 Albumin/Globulin Ratio 1.1 Urine Color Yellow Urine Clarity Cloudy Urine pH 6.0 Ur Specific [place] 1.020 Urine Protein 100 H Urine Glucose (UA) Normal Urine Ketones 5 H Urine Occult Blood 250 H Urine Nitrite Negative Urine Bilirubin Negative Urine Urobilinogen 1 H Ur Leukocyte Esterase 25 H Urine RBC > 100 SEEN Urine WBC 0 SEEN Ur Squamous Epith Cells 0-5 SEEN Urine Bacteria 0 SEEN Urine Mucus 0 SEEN Radiography Diagnostic Testing: Clinical Impression(s) from Imaging Studies Abdomen/Pelvis CT 09/03/23 20:16 IMPRESSION: Interval passage of calculus from the left renal calyceal position to a distal left intraureteral position with associated mild upstream dilatation of the collecting system. There is slight left perinephric stranding which is likely postobstructive but would still correlate clinically to exclude any superimposed infection. Electronically Signed: Ric Holder MD at 22:44 EST , Discharge Plan Triage Chief Complaint: Flank Pain ED Midlevel Provider: Jonathan Hernandez ED Provider: Cipriano Mendez Dx/Rx/DC Orders Clinical Impression: Kidney stone on left side Instructions: ED Kidney Stone with Pain Prescriptions: New tamsulosin [Flomax] 0.4 mg capsule 0.4 mg PO DAILY Qty: 10 0RF oxycodone-acetaminophen [Percocet] 5-325 mg tablet 1 tab PO Q8H PRN (Reason: pain) 3 Days Qty: 10 0RF ondansetron 4 mg tablet,disintegrating 4 mg PO Q8H PRN PRN (Reason: Nausea) Qty: 10 0RF No Action atorvastatin 40 mg tablet 40 mg PO QHS esomeprazole magnesium [Nexium 24HR] 20 mg capsule,delayed release(DR/EC) 20 mg PO DAILY multivitamin [Daily Multi-Vitamin] Tablet 1 tab PO DAILY Primary Care Provider: Moni Barrera NP Referrals: Alonso Shaffer MD [Med Staff - Active Staff] - Moni Barrera NP, [facility] [Primary Care Provider] - Disposition Disposition: Home, Self Care
[2023-09-03] MEDS: 0.9% Normal Saline (1000mL) 1,000 ML 1000 ML IV (20:37)
[2023-09-03] MEDS: Ondansetron 4 MG/2 ML Vial IV (20:37)
[2023-09-03] MEDS: Ketorolac 15 MG/ML Vial IV (20:37)
[2023-09-03] MEDS: Morphine 4 MG/ML Syringe IV ×2 (20:38→22:48)
== END 2023-09-04 00:10 | disposition home or self-care (01) ==
PROVIDERS: Emergency Provider Emergency Medicine; PCP Registered Nurse; Visit Provider Emergency Medicine
DX: N20.1 Calculus of ureter (principal); Z87.891 Personal history of nicotine dependence
CPT/HCPCS: 74176; 80053; 81001; 85025; 96361; 96374; 96375; 96376; 99283; J7030; A4216; J2405

== ENCOUNTER 2024-01-28 11:38 | Outpatient (RCR) | payer MEDICARE, OTHER, SELFPAY ==
--- NOTE | 2024-01-28 12:50 | HP.PTEVAL_ITS ---
Patient's Visit Information Visit Information Visit Information: ARIEL VEE is a 68 year old F referred to Physical Therapy by Dr. Govind Montes MD with a diagnosis of CERVICALGIA. Date of Evaluation: 01/28/24 Physical Therapist: Harlan Rutledge, PT, Cert MDT, OCS Visit Plan Frequency: 1 VISIST Plan: PT EVALUATION FOR HEP ONLY PER PATIENT Subjective Subjective: This 68 y/o female presents to physical therapy with cervical pain. Patient has had cervical pain for `2 years. Patient pain has been every couple weeks which has been intermittent. Seen DR Montes recommended PT and x-rays showed DDD and foraminal stenosis show C4-[address] SCAN. Aggravating factors bending ,not specific occasionally washing dishes. Denies dizziness/nausea. Coughing/sneezing -. Patient doesn't sleep week. Patient has no trauma. Patient has h/o lumbar pain and s/p surgery lumbar fusion. Patient pain condition affects QOL and function. Patient goal to decrea se pain. SOCIAL: VOCATION: retired Pain Bilateral: Pain Intensity (Out of 10): 0 Pain Intensity Range: 10 Objective Objective: POSTURE: mild forward posture CERVICAL ROM: flexion WFL ,extension mod loss ,lateral flexion mod loss , rotation min/mod loss no pain NEURO: denies paresthesia/tingling ,reflexes C5-6-7 1/3 AROM BUE: WFL MMT: BUE 4/5 Special Tests C/S Radiculapathy - Left Upper limb tension test: Negative C/S Radiculapathy - Right Upper limb tension test: Negative C/S Radiculapathy - Left Spurlings: Negative C/S Radiculapathy - Right Spurlings: Negative C/S Radiculapathy - Left Cervical distraction: Negative C/S Radiculapathy - Right Cervical distraction: Negative C/S Radiculapathy - Left Relief test: Negative C/S Radiculapathy - Right Relief test: Negative C/S Radiculapathy - Valsalva: Negative Sharp Armida: Negative Vertebral Artery Test: Negative Alar Ligament Test: Negative Goals Goal 1:: Patient was provided with HEP for cervical spine Goal Time Frame: 1 visit Rehabilitation Potential Physical Therapy Diagnosis: This patient has intermittent cervical symptoms with looking down better with rotation thus patient wants HEP Rehabilitation Potential: Good Anticipated Interventions For the Purpose of:: To decrease pain, To increase ROM, To improve ability of physical actions for home/community/work/leisure and Other Other: HEP Text: Thank you for the opportunity to evaluate your patient. For Medicare and Medicare HMO plans, please review the plan of care and approve it. It will need to be FAXED BACK to us at [phone] for Medicare purposes. For Medicare only, by signing this I certify the plan of care. Please let me know if there are questions or concerns regarding this plan of care. Physician Signature: Date:
== END 2024-01-28 14:41 | disposition home or self-care (01) ==
LOC: PT 11:38
PROVIDERS: PCP Registered Nurse; Visit Provider Orthopaedic Surgery Orthopaedic Surgery of the Spine
DX: M54.2 Cervicalgia (principal)
CPT/HCPCS: 97110; 97162

== ENCOUNTER → 2024-02-15 | Outpatient (CLI) | payer MEDICARE, OTHER, SELFPAY ==
--- NOTE | 2024-02-15 07:31 | MRI_ITS ---
STUDY: MRI CERVICAL SPINE MR Spine Cervical W/O Contrast REASON FOR EXAM: Female, 68 years old. Radiculopathy, cervical region; pain TECHNIQUE: Standardized fat and water weighted pulse sequences were obtained in the sagittal and axial plane. Individualized dose optimization techniques were used for this CT. MR Spine Cervical W/O Contrast COMPARISON: 12/25/2023 plain film. FINDINGS: Normal foramen magnum and brainstem-cervical cord junction. Normal craniovertebral junction. Normal anterior atlantoaxial articulation. Normal odontoid process. Normal cervical lordosis. Large anterior osteophytes. C2-3: Normal endplates. Disc desiccation Normal central canal and intervertebral neuroforamina. C3-4: Normal endplates. Disc desiccation Normal central canal and intervertebral neuroforamina. C4-5: Loss of intervertebral disc height. There is endplate spondylosis of the vertebral body. . Posterior disc bulge. Mild impression upon anterior thecal sac. No spinal stenosis. Minimal narrowing of the neural foramina. There is bilateral facet arthropathy. C5-6: Loss of intervertebral disc height. There is endplate spondylosis of the vertebral body. Normal central canal and intervertebral neuroforamina. There is bilateral facet arthropathy. Posterior disc bulge. C6-7: Loss of intervertebral disc height. There is endplate spondylosis of the vertebral body. Normal central canal and intervertebral neuroforamina. There is bilateral facet arthropathy. Posterior disc bulge. C7-T1: Loss of intervertebral disc height. There is endplate spondylosis of the vertebral body. Normal central canal and intervertebral neuroforamina. There is bilateral facet arthropathy. Posterior disc bulge. Discogenic endplate changes. Normal visualized soft tissue structures. MRI/Spine Cervical (Routine) IMPRESSION: (NOT LISTED IN ORDER OF SIGNIFICANCE) Multilevel degenerative changes, as described above. Electronically Signed: Bill Estrada MD at 14:16 EDT ,
--- NOTE | 2024-02-15 07:33 | MRI_ITS ---
STUDY: MR Spine Lumbar W/O Contrast 02/16/2024 2:33 PM REASON FOR EXAM: Female, 68 years old. Back pain LUMBAR STENOSIS WITH CLAUDICATION, BLL SACROILITIS, POST LAMINECT TECHNIQUE: MR Spine Lumbar W/O Contrast Standardized fat and water weighted pulse sequences were obtained. COMPARISON: None FINDINGS: T12-L1: Normal endplates. Normal disc height, hydration and morphology. Normal bilateral facet joints. Normal central canal and bilateral lateral recesses. Normal bilateral intervertebral neural foramina. Normal lumbar lordosis. There is no substantial scoliosis. Normal conus medullaris that terminates at the T12-L1 L1-2: Normal endplates. Normal disc height and morphology. Normal central canal and intervertebral neuroforamina. L2-3: Loss of intervertebral disc height. There is endplate spondylosis of the vertebral body. Bilateral neural foraminal stenosis. Compression of exiting nerve roots. Posterior disc bulge extends into the neural foramen. Spinous process resection. Disc desiccation. L3-4: Loss of intervertebral disc height. There is endplate spondylosis of the vertebral body. Bilateral neural foraminal stenosis. Compression of exiting nerve roots. Posterior disc bulge extends into the neural foramen. Spinous process resection. Disc desiccation. L4-5: Loss of intervertebral disc height. There is endplate spondylosis of the vertebral body. Bilateral neural foraminal stenosis. Compression of exiting nerve roots. Posterior disc bulge extends into the neural foramen. Spinous process resection. Disc desiccation. L5-S1: Loss of intervertebral disc height. There is endplate spondylosis of the vertebral body. There is bilateral facet arthropathy. Normal central canal and intervertebral neuroforamina. Normal visualized sacral ala. Normal visualized paraspinous soft tissue structures. MRI/Spine Lumbar (Routine) IMPRESSION: Multilevel degenerative changes, as described above. Electronically Signed: Bill Estrada MD at 14:36 EDT ,
== END | disposition home or self-care (01) ==
PROVIDERS: PCP Registered Nurse; Referring Provider Orthopaedic Surgery Orthopaedic Surgery of the Spine; Visit Provider Orthopaedic Surgery Orthopaedic Surgery of the Spine
DX: M54.12 Radiculopathy, cervical region (principal); M48.062 Spinal stenosis, lumbar region with neurogenic claudication; M46.1 Sacroiliitis, not elsewhere classified; M96.1 Postlaminectomy syndrome, not elsewhere classified
CPT/HCPCS: 72141; 72148

== ENCOUNTER → 2024-04-21 | Outpatient (CLI) | payer MEDICARE, OTHER, SELFPAY ==
--- NOTE | 2024-04-21 14:35 | RAD_ITS ---
STUDY: X-RAY - PELVIS AND LEFT HIP REASON FOR EXAM: Female, 68 years old. LEFT HIP PAIN TECHNIQUE: 3 views of the pelvis and hip. COMPARISON: Comparison is made with prior study dated December 02, 2023. FINDINGS: There is a non-specific bowel gas pattern. Normal visualized soft tissue structures. Normal bilateral iliac wings, sacroiliac joints and visualized sacrum. Normal bilateral superior and inferior pubic rami. There are degenerative changes of the pubic symphysis with articular narrowing and sclerosis. Normal bilateral ischial tuberosities. Normal visualized femoral head. Normal acetabulum. is severe articular joint space narrowing of the hip. The patient is status post right total hip replacement. RAD/HIP, UNI W/ Pelvis 2-3 Views IMPRESSION: Status post right total hip replacement. Marked degree of joint space narrowing involving the left hip joint. Electronically Signed: Abdoulaye Zacarias MD at 14:51 EDT ,
== END | disposition home or self-care (01) ==
LOC: RAD 14:34
PROVIDERS: PCP Registered Nurse; Referring Provider Anesthesiology; Visit Provider Anesthesiology
DX: M25.552 Pain in left hip (principal)
CPT/HCPCS: 73502

== ENCOUNTER → 2024-08-18 | Outpatient (CLI) | payer MEDICARE, OTHER, SELFPAY ==
[2024-08-18 13:14] LABS: Anion Gap 4 (5-15); BUN 17 mg/dL (7-18); BUN/Creat Ratio 15.2 RATIO (10-20); Calcium,Total 9.7 mg/dL (8.5-10.1); Chloride 107 mmol/L (98-107); Creatinine, Serum 1.12 mg/dL (0.55-1.02); EST Glomerular Filtration Rate 51 mL/min (>60); Est Glom Filt Rate - Afr Amer 62 mL/min (>60); Glucose 94 mg/dL (74-106); Potassium 4.2 mmol/L (3.5-5.1); Sodium Level 141 mmol/L (136-145)
== END | disposition home or self-care (01) ==
LOC: LAB 12:37
PROVIDERS: PCP Registered Nurse; Referring Provider Anesthesiology; Visit Provider Anesthesiology
DX: Z13.89 Encounter for screening for other disorder (principal)
CPT/HCPCS: 36415; 80048

== ENCOUNTER → 2025-04-21 | Outpatient (CLI) | payer MEDICARE, OTHER, SELFPAY ==
--- NOTE | 2025-04-21 11:00 | RAD_ITS ---
PROCEDURE: HIPS B/L MIN 2 VIEWS W/ PELVIS 04/21/2025 REASON FOR EXAM: GONZALO HIP PAIN TECHNIQUE: Procedure Code: [id number] Modality: DX Procedure: HIPS B/L MIN 2 VIEWS W/ PELVIS Laterality: COMPARISON: 04/22/2024. FINDINGS: Status post right hip arthroplasty. No evidence of acute hardware complication. [id number] left hip degenerative changes. Degenerative changes of the partially visualized spine. RAD/Hips B/L min 2 views w/ Pelvis IMPRESSION: Intact right hip arthroplasty. [id number] left hip osteoarthrosis. Reading Location: [id number]
== END | disposition home or self-care (01) ==
LOC: RAD 10:53
PROVIDERS: PCP Registered Nurse; Referring Provider Anesthesiology; Visit Provider Anesthesiology
DX: M25.551 Pain in right hip (principal); M25.552 Pain in left hip
CPT/HCPCS: 73521